=== PATIENT | male | born 1940 | race Caucasian/White ===

== ENCOUNTER 2020-12-29 08:54 | Inpatient (IN) | payer MEDICARE ==
--- NOTE | 2020-12-29 09:22 | ERPHSYRPT ---
- History of Present Illness Time Seen by Provider: 12/29/20 09:00 Historian: patient Exam Limitations: no limitations Patient Subjective Stated Complaint: PT sates "I was woken up by the pain at 5 am and it just keeps hurting. My chest, neck, back, and arm hurt." Triage Nursing Assessment: Pt presented alert and oriented x 3, skin pwd. Pt able to speak in clear full sentences. Pt in no apparent respiratory distress. PT stated he has had both covid shots, pt stated he had horrible reaction to the second shot. Physician History: Patient is a 80-year-old male presents to our emergency department via EMS for evaluation of chest pain. Patient states chest pain started at approximately 5 AM. Chest pain described as an ache that is localized to the substernal area. However that tends to radiate to the neck and back. Patient received 324 mg aspirin as well as 0.4 mg nitro prior to arrival. No associated nausea or vomiting. No diaphoresis. No rash. No fever. Symptoms are mild to moderate in intensity. No specific worsening improving factors. Patient voices no other complaints or concerns at this time. Timing/Duration: today Activities at Onset: sleep Quality: aching Location: substernal Chest Pain Radiation: neck, back Severity of Pain-Max: moderate Severity of Pain-Current: mild Modifying Factors: Improves With: nothing Associated Symptoms: denies symptoms Prior Chest Pain/Cardiac Workup: no prior chest pain Nitro Today/Relief: 0.4 mg x 1 Aspirin Treatment Today: 81 mg x 4 Allergies/Adverse Reactions: No Known Drug Allergies Allergy (Verified 12/29/20 09:06) Home Medications: Metformin HCl [Glucophage] 1,000 mg PO BID 12/29/20 [History] Hx Tetanus, Diphtheria Vaccination/Date Given: No Hx Influenza Vaccination/Date Given: Yes Hx Pneumococcal Vaccination/Date Given: Yes Immunizations Up to Date: Yes Travel Risk - International Travel Have you traveled outside of the country in past 3 weeks: No - Coronavirus Screening Are you exhibiting any of the following symptoms?: No Close contact with a COVID-19 positive Pt in past 14-21 Days: No - Review of Systems Constitutional: No Symptoms, No Fever, No Chills Eyes: No Symptoms Ears, Nose, & Throat: No Symptoms Respiratory: No Symptoms, No Cough, No Dyspnea Cardiac: No Symptoms, No Chest Pain, No Edema, No Syncope Abdominal/Gastrointestinal: No Symptoms, No Abdominal Pain, No Nausea, No Vomiting, No Diarrhea Genitourinary Symptoms: No Symptoms, No Dysuria Musculoskeletal: No Symptoms, No Back Pain, No Neck Pain Skin: No Symptoms, No Rash Neurological: No Symptoms, No Dizziness, No Focal Weakness, No Sensory Changes Psychological: No Symptoms Endocrine: No Symptoms Hematologic/Lymphatic: No Symptoms Immunological/Allergic: No Symptoms All Other Systems: Reviewed and Negative - Past Medical History Pertinent Past Medical History: Yes Neurological History: No Pertinent History ENT History: Cataracts Cardiac History: Hypertension Respiratory History: No Pertinent History Endocrine Medical History: Diabetes Type II Musculoskeletal History: No Pertinent History GI Medical History: No Pertinent History History: No Pertinent History Psycho-Social History: No Pertinent History Male Reproductive Disorders: No Pertinent History - Past Surgical History Past Surgical History: No - Social History Smoking Status: Former smoker Exposure to second hand smoke: Yes Drug Use: none Patient Lives Alone: Yes - Nursing Vital Signs Nursing Vital Signs: Initial Vital Signs Temperature 97.6 F 12/29/20 08:57 Pulse Rate 74 12/29/20 08:57 Respiratory Rate 18 12/29/20 08:57 Blood Pressure 150/84 12/29/20 08:57 O2 Sat by Pulse Oximetry 95 12/29/20 08:57 Pain Scale Pain Intensity 4 - Physical Exam General Appearance: no apparent distress, alert Eye Exam: PERRL/EOMI, eyes nml inspection Ears, Nose, Throat Exam: normal ENT inspection, moist mucous membranes Neck Exam: normal inspection, non-tender, supple, full range of motion Respiratory Exam: normal breath sounds, lungs clear, No respiratory distress Cardiovascular Exam: regular rate/rhythm, normal heart sounds Gastrointestinal/Abdomen Exam: soft, No tenderness, No mass Back Exam: normal inspection, No CVA tenderness, No vertebral tenderness Extremity Exam: normal inspection, normal range of motion Neurologic Exam: alert, oriented x 3, cooperative, normal mood/affect, sensation nml, No motor deficits Skin Exam: normal color, warm, dry SpO2 Interpretation: normal SpO2: 96 O2 Delivery: Room Air - Course Nursing assessment & vital signs reviewed: Yes EKG Interpreted by Me: RATE (74), Sinus Rhythm, NORMAL AXIS, NORMAL INTERVALS - Radiology Exams Chest X-ray Interpretation: Teleradiologist Report (Portable chest rotated demon strating cardiomegaly tortuous descending aorta mild bibasilar infiltrates versus atelectasis and right midlung calcified granuloma. ) Ordered Tests: Active Orders 24 hr Category Date Time Status Bedrest ROUTINE Activity 12/29/20 15:57 Active Bedrest with BRP/BSC ROUTINE Activity 12/29/20 15:57 Active Stores Clerk STAT Care 12/29/20 09:02 Completed Code Status Order ROUTINE Care 12/29/20 15:57 Active EKG-ER Only STAT Care 12/29/20 08:59 Completed IV Care Q6H Care 12/29/20 15:57 Active IV Insertion STAT Care 12/29/20 08:59 Completed Implement Chest Pain Pathway ROUTINE Care 12/29/20 15:[address] in Observation ROUTINE Care 12/29/20 15:57 Active Pulse Oximetry (ED) STAT Care 12/29/20 08:59 Completed [place] ROUTINE Care 12/29/20 15:57 Active Telemetry q6h Care 12/29/20 15:57 Active Weight,Daily 0600 Care 12/29/20 15:57 Active Consistent Carbohydrate Diet 1800 Calorie Diet 12/29/20 Dinner Completed CHEST 1 VIEW (PORTABLE) Stat Exams 12/29/20 09:02 Completed CBC W DIFF Stat Lab 12/29/20 09:00 Completed CMP Stat Lab 12/29/20 09:00 Completed LIPID PROFILE AM.LAB Lab 12/30/20 04:00 Ordered MAGNESIUM Stat Lab 12/29/20 09:00 Completed NT PRO BNP Stat Lab 12/29/20 09:00 Completed TROPONIN Q3H Lab 12/29/20 09:00 Completed TROPONIN Q3H Lab 12/29/20 11:34 Completed TROPONIN Q3H Lab 12/29/20 14:40 Completed TROPONIN Q3H Lab 12/29/20 18:20 Completed TROPONIN Q3H Lab 12/29/20 21:15 Completed UA W/RFX UR CULTURE Stat Lab 12/29/20 18:20 Completed EKG Q8HX2,QAMX3,PRN RT 12/31/20 05:00 Active Transfer Order Routine Transfer 12/29/20 Completed Medication Summary Generic Name Dose Route Start Last Admin Trade Name Freq PRN Reason Stop Dose Admin Acetaminophen 500 mg 12/29/20 16:01 Tylenol Extra Strength 500 Mg PO 01/28/21 16:00 Q4H PRN PRN Hydrocodone Bitart/Acetaminophen 1 tab 12/29/20 16:02 [place] 5/325 Mg PO 01/03/21 16:01 Q4H PRN PRN PAIN Al Hydrox/Mg Hydrox/Simethicone 30 ml 12/29/20 15:57 Maalox Es 30 Ml Unit Dose PO 01/28/21 15:56 Q4H PRN PRN INDIGESTION Dexamethasone Sodium Phosphate 8 mg 12/29/20 17:00 12/29/20 21:33 Decadron 10mg Inj. IV 01/28/21 16:59 Not Given DAILY MILY Enoxaparin Sodium 60 mg 12/29/20 17:00 12/29/20 17:16 Enoxaparin Sodium SQ 01/28/21 16:59 60 mg DAILY MILY Administration Remdesivir 100 mg/ Sodium 100 mls @ 100 mls/hr 12/30/20 17:00 Chloride IV 01/29/21 16:59 Q24H MILY Insulin Human Lispro 0 unit 12/29/20 17:33 Humalog SQ 01/28/21 17:32 UD PRN HYPERGLYCEMIA Lorazepam 1 mg 12/29/20 16:01 Ativan 1 Mg PO 01/28/21 16:00 Q4H PRN PRN ANXIETY OR SLEEP Magnesium Hydroxide 30 - 60 ml 12/29/20 15:57 Milk Of Magnesia 30 Ml PO 01/28/21 15:56 QDP PRN CONSTIPATION Metformin HCl 1,000 mg 12/29/20 17:00 12/29/20 17:10 Glucophage 500 Mg PO 01/28/21 16:59 1,000 mg BIDWM MILY Administration Morphine Sulfate 4 mg 12/29/20 16:02 12/29/20 17:28 Morphine Sulfate 4 Mg Inj IV 01/03/21 16:01 4 mg Q3H PRN PRN Administration CHEST PAIN Ondansetron HCl 4 mg 12/29/20 15:57 Zofran 4 Mg/2 Ml Vial IV 01/28/21 15:56 Q4H PRN PRN NAUSEA/VOMITING Senna/Docusate Sodium 2 udtab 12/29/20 15:57 Senokot-S Tablet PO 01/28/21 15:56 BID PRN PRN CONSTIPATION Sodium Chloride 10 ml 12/29/20 22:00 12/29/20 21:25 Sodium Chloride 0.9% 10 Ml Flush Syringe IV 01/28/21 21:59 10 ml Q8HT MILY Administration Sodium Chloride 10 ml 12/29/20 16:00 Sodium Chloride 0.9% 10 Ml Flush Syringe IV 01/28/21 15:59 PRN PRN Discontinued Medications Generic Name Dose Route Start Last Admin Trade Name Ryan PRN Reason Stop Dose Admin Acetaminophen 650 mg 12/29/20 15:57 Tylenol 325 Mg PO 01/28/21 15:56 Q4H PRN PRN PAIN AND/OR FEVER Remdesivir 200 mg/ Sodium 250 mls @ 125 mls/hr 12/29/20 17:00 12/29/20 19:55 Chloride IV 12/29/20 18:59 125 mls/hr 1700 MILY Administration Nitroglycerin 1 gm 12/29/20 12:02 12/29/20 12:08 Nitro-Bid 2% Ud Packets TOP 12/29/20 12:03 1 gm STAT ONE Administration Nitroglycerin Confirm 12/29/20 12:05 Nitro-Bid 2% Ud Packets Administered 12/29/20 12:06 Dose 1 gm .ROUTE .ST-MED ONE Lab/Rad Data: Laboratory Result Diagrams 12/29/20 09:00 12/29/20 09:00 Laboratory Results 12/29/20 12/29/20 12/29/20 Range/Units 14:40 12:19 11:34 WBC (4.0-10.5) K/mm3 RBC (4.1-5.6) M/mm3 Hgb (12.5-18.0) gm/dl Hct (42-50) % MCV (78-100) fl MCH (26-32) pg MCHC (32-36) g/dl RDW (11.5-14.0) % Plt Count (150-450) K/mm3 MPV (7.5-11.0) fl Gran % (36.0-66.0) % Eos # (Auto) (0-0.5) Absolute Lymphs (auto) (1.0-4.6) Absolute Monos (auto) (0.0-1.3) Lymphocytes % (24.0-44.0) % Monocytes % (0.0-12.0) % Eosinophils % (0.00-5.0) % Basophils % (0.0-0.4) % Absolute Granulocytes (1.4-6.9) Basophils # (0-0.4) Sodium (137-145) mmol/L Potassium (3.5-5.1) mmol/L Chloride (98-107) mmol/L Carbon Dioxide (22-30) mmol/L Anion Gap (5-15) MEQ/L BUN (9-20) mg/dL Creatinine (0.66-1.25) mg/dL Estimated GFR ML/MIN Glucose (74-106) mg/dL Calcium (8.4-10.2) mg/dL Magnesium (1.6-2.3) mg/dL Total Bilirubin (0.2-1.3) mg/dL AST (17-59) U/L ALT (0-50) U/L Alkaline Phosphatase (38-126) U/L Troponin I < 0.012 < 0.012 (0.000-0.034) ng/mL NT-Pro-B Natriuret Pep (0-1800) pg/mL Serum Total Protein (6.3-8.2) g/dL Albumin (3.5-5.0) g/dL Influenza Type A Ag NEGATIVE (NEGATIVE) Influenza Type B Ag NEGATIVE (NEGATIVE) RSV (PCR) NEGATIVE (Negative) SARS-CoV-2 (PCR) POSITIVE A (NEGATIVE) 12/29/20 12/29/20 12/29/20 Range/Units 09:00 09:00 09:00 WBC 7.0 (4.0-10.5) K/mm3 RBC 4.12 (4.1-5.6) M/mm3 Hgb 11.2 L (12.5-18.0) gm/dl Hct 34.9 L (42-50) % MCV 84.7 (78-100) fl MCH 27.2 (26-32) pg MCHC 32.1 (32-36) g/dl RDW 14.3 H (11.5-14.0) % Plt Count 198 (150-450) K/mm3 MPV 8.9 (7.5-11.0) fl Gran % 85.3 H (36.0-66.0) % Eos # (Auto) 0.06 (0-0.5) Absolute Lymphs (auto) 0.54 L (1.0-4.6) Absolute Monos (auto) 0.42 (0.0-1.3) Lymphocytes % 7.7 L (24.0-44.0) % Monocytes % 6.0 (0.0-12.0) % Eosinophils % 0.9 (0.00-5.0) % Basophils % 0.1 (0.0-0.4) % Absolute Granulocytes 5.96 (1.4-6.9) Basophils # 0.01 (0-0.4) Sodium 135 L (137-145) mmol/L Potassium 3.5 (3.5-5.1) mmol/L Chloride 99 (98-107) mmol/L Carbon Dioxide 30 (22-30) mmol/L Anion Gap 9.5 (5-15) MEQ/L BUN 16 (9-20) mg/dL Creatinine 1.34 H (0.66-1.25) mg/dL Estimated GFR 54.2 ML/MIN Glucose 191 H (74-106) mg/dL Calcium 8.4 (8.4-10.2) mg/dL Magnesium 2.0 (1.6-2.3) mg/dL Total Bilirubin 0.40 (0.2-1.3) mg/dL AST 19 (17-59) U/L ALT 13 (0-50) U/L Alkaline Phosphatase 82 (38-126) U/L Troponin I < 0.012 (0.000-0.034) ng/mL NT-Pro-B Natriuret Pep 541 (0-1800) pg/mL Serum Total Protein 6.9 (6.3-8.2) g/dL Albumin 3.9 (3.5-5.0) g/dL Influenza Type A Ag (NEGATIVE) Influenza Type B Ag (NEGATIVE) RSV (PCR) (Negative) SARS-CoV-2 (PCR) (NEGATIVE) - Progress Progress: improved Air Movement: good Progress Note: Patient reassessed. He feels well. No active chest pain. Vital stable. Troponin negative x2. We attempted transferring patient to the [facility] however no b eds available. PA approved admission to our facility. Plan of care discussed with patient. He agreed to admission to [facility] for further evaluation and treatment. Patient is covid positive. Case discussed with Edyta who accepts admission to observation. Patient voices no other complaints or concerns at this time. 12/29/20 10:16 12/30/20 00:02 12/30/20 00:06 Blood Culture(s) Obtained: No Antibiotics given: No Discussed with : Other Will see patient in: hospital (observation) Counseled pt/family regarding: lab results, diagnosis, rad results - Departure Departure Disposition: Observation Clinical Impression: ACS (acute coronary syndrome), Chest pain, Proteinuria, Calcified granuloma of lung, Renal insufficiency, SARS-CoV-2 positive Condition: Stable Critical Care Time: No
[2020-12-29 09:26] LABS: Absolute Neutrophil Ct (ANC) 5.96 (1.4-6.9); BASOPHIL % 0.1 % (0.0-0.4); Basophil (Absolute #) 0.01 (0-0.4); Eosinophil % 0.9 % (0.00-5.0); Eosinophil (Absolute #) 0.06 (0-0.5); Hematocrit 34.9 % (42-50); Hemoglobin 11.2 gm/dl (12.5-18.0); Lymphocyte (Absolute #) 0.54 (1.0-4.6); Lymphocytes % 7.7 % (24.0-44.0); Mean Cell Volume 84.7 fl (78-100); Mean Corpuscular Hemoglobin 27.2 pg (26-32); Mean Corpuscular Hgb Concent. 32.1 g/dl (32-36); Mean Platelet Volume 8.9 fl (7.5-11.0); Monocyte (Absolute #) 0.42 (0.0-1.3); Neutrophil % 85.3 % (36.0-66.0); Platelet Count 198 K/mm3 (150-450); Red Blood Count 4.12 M/mm3 (4.1-5.6); Red Cell Distribution Width 14.3 % (11.5-14.0)
--- NOTE | 2020-12-29 09:41 | XRAY ---
Indication: Chest pain. Comparison: None Portable chest rotated demonstrating cardiomegaly, tortuous descending aorta, mild bibasilar infiltrates versus atelectasis, and right mid lung calcified granuloma. Bony thorax intact with mild degenerative changes.
[2020-12-29 09:46] LABS: ALBUMIN 3.9 g/dL (3.5-5.0); ANION GAP 9.5 MEQ/L (5-15); BILIRUBIN,TOTAL 0.4 mg/dL (0.2-1.3); Calcium 8.4 mg/dL (8.4-10.2); Creatinine 1 1.34 mg/dL (0.66-1.25); EST GLOMERULAR FILTRATION RATE 54.2 ML/MIN; Potassium 3.5 mmol/L (3.5-5.1); Total Protein 6.9 g/dL (6.3-8.2)
[2020-12-29] MEDS ORDERED: NITRO-BID 2% UD PACKETS TOP ONE (12:02)
[2020-12-29] MEDS ORDERED: NITRO-BID 2% UD PACKETS ONE (12:05)
[2020-12-29 12:58] LABS: INFLUENZA A NEGATIVE (NEGATIVE); INFLUENZA B NEGATIVE (NEGATIVE); RESPIRATORY SYNCTIAL VIRUS NEGATIVE (Negative)
[2020-12-29] MEDS ORDERED: Zofran 4 MG/2 ML VIAL IV PRN (15:57)
[2020-12-29] MEDS ORDERED: TYLENOL 325 MG PO PRN (15:57)
[2020-12-29] MEDS ORDERED: MAALOX ES 30 ML UNIT DOSE PO PRN (15:57)
[2020-12-29] MEDS ORDERED: MILK OF MAGNESIA 30 ML PO PRN (15:57)
[2020-12-29] MEDS ORDERED: Senokot-S Tablet PO PRN (15:57)
[2020-12-29] MEDS ORDERED: Sodium Chloride 0.9% 10 ML FLUSH Syringe IV PRN (16:00)
[2020-12-29] MEDS ORDERED: Ativan 1 MG PO PRN (16:01)
[2020-12-29] MEDS ORDERED: TYLENOL EXTRA STRENGTH 500 MG PO PRN (16:01)
[2020-12-29] MEDS ORDERED: NORCO 5/325 MG PO PRN (16:02)
[2020-12-29] MEDS ORDERED: ENOXAPARIN SODIUM SQ SCH (17:00)
[2020-12-29] MEDS: Glucophage 500 MG PO SCH (17:10)
[2020-12-29] MEDS: DECADRON 10MG INJ. IV SCH ×2 (17:11→21:33)
[2020-12-29] MEDS: REMDESIVIR 200 MG in Sodium Chloride 0.9% 250 ML 250 ML IV SCH ×2 (17:11→19:55)
[2020-12-29] MEDS: MORPHINE SULFATE 4 MG INJ IV PRN (17:28)
[2020-12-29] MEDS ORDERED: HUMALOG SQ PRN (17:33)
[2020-12-29 18:33] LABS: Appearance SLIGHTLY CLOUDY (CLEAR); Bilirubin NEGATIVE (NEGATIVE); Blood NEGATIVE Ery/ul (0-5); Glucose NEGATIVE (NEGATIVE); Ketones SMALL (NEGATIVE); Leukocyte Esterase NEGATIVE (NEGATIVE); Mucus MODERATE /HPF (NEGATIVE); Nitrite NEGATIVE (NEGATIVE); Protein,Urine Dip 100 (Negative); Specific Gravity 1.026 (1.005-1.025); Urobilinogen 4 mg/dL (0-1); WBC 0-2 /HPF (0-5)
[2020-12-29] MEDS: Sodium Chloride 0.9% 10 ML FLUSH Syringe IV SCH (21:25)
[2020-12-30] MEDS: MORPHINE SULFATE 4 MG INJ IV PRN (02:42)
[2020-12-30] MEDS: Sodium Chloride 0.9% 10 ML FLUSH Syringe IV SCH (04:51)
[2020-12-30 05:41] LABS: ALBUMIN 3.7 g/dL (3.5-5.0); ANION GAP 10.7 MEQ/L (5-15); BILIRUBIN,TOTAL 0.3 mg/dL (0.2-1.3); Calcium 8.3 mg/dL (8.4-10.2); Creatinine 1 1.44 mg/dL (0.66-1.25); EST GLOMERULAR FILTRATION RATE 49.9 ML/MIN; Potassium 3.9 mmol/L (3.5-5.1); Total Protein 6.5 g/dL (6.3-8.2)
[2020-12-30 05:51] LABS: Risk Ratio 5.1
[2020-12-30 05:58] LABS: INR 1.42 (0.8-3.0); PROTIME 16.1 SECONDS (8.83-12.87)
[2020-12-30] MEDS ORDERED: LOPRESSOR 5 MG/5 ML INJECTION IV ONE (06:00)
[2020-12-30] MEDS: Glucophage 500 MG PO SCH (08:06)
[2020-12-30] MEDS ORDERED: Cardizem IV 50 MG/10 ML IV ONE (08:14)
[2020-12-30] MEDS ORDERED: CARDIZEM DRIP 100 MG/100 ML D5W 100 ML IV PRN (08:14)
[2020-12-30] MEDS ORDERED: Sodium Chloride 0.9% 1000 ML 1,000 ML IV SCH (08:15)
[2020-12-30] MEDS: DECADRON 10MG INJ. IV SCH (09:52)
[2020-12-30] MEDS ORDERED: XARELTO 10 MG TABLET PO SCH (10:00)
--- NOTE | 2020-12-30 10:41 | HP ---
CHIEF COMPLAINT: Chest pain, neck pain, arm pain, weakness. HISTORY OF PRESENT ILLNESS: The patient is a previously healthy 80 year-old white male who woke up with chest aching, aching in his neck, left arm and back. He has been weak and at this point got on floor and could not get up. He has had his COVID shots several weeks ago for the second one and after them he could not get up after he fell on the floor once. He describes no GI symptoms, no nausea or vomiting. He is able to eat fine. Normally he is ambulatory. He moved down to [place], [place] to live with and take care of his sister's . He has been out to the local [employer] and grocery store and he has not been wearing a mask since he feels protected with the vaccines and he admits now perhaps he was wrong. We have a standard protocol now of testing anybody who is going to be admitted for COVID and he came back positive. His chest x-ray did show some fluffiness maybe in the left lower quadrant. He was not coughing. His oxygen levels have been normal on room air although he has been somewhat short of breath at times he states. The chest pain went down to 4 with some morphine. Nitro did not effect it. His troponins are negative. His EKG showed some nonspecific inferior changes which could be inferior-lateral ischemia. He used to smoke 30 pack years but has not in 20 years. Because of the positive COVID test he was admitted to the COVID unit. Unfortunately, he was admitted [facility] because of the insurance situation and they do not take observation patient's which I understand. However this morning it looks like he is going to be in for a longer stay. He went into atrial fibrillation at maybe 0430 hours although he was anticoagulated with Lovenox and also received his first of Remdesivir and Decadron. We started him on Xarelto 30 mg, Cardizem drip when the rate did not come down with some beta blockers. Now he is pretty comfortable with the rate about 110 at 1000 hours. He said he feels not well but not real bad. He denies chest pain. He is not coughing, not shortness of breath still. He is alert and orientated, sleeping well. PAST MEDICAL HISTORY: The patient has had diabetes for he does not know how many years. He takes Metformin. MEDICATIONS: As far as we can find out his Metformin 1,000 b.i.d. ALLERGIES: NKDA. REVIEW OF SYSTEMS: HEENT: No fever or chills. No change in taste. CHEST: Just feeling some shortness of breath occasionally. Chest feels achy. EXTREMITIES: Arm feels achy. NECK: Neck is worse and is worse with moving his neck. NEUROLOGICAL: No headache. No focal weakness. No history of stroke. PHYSICOLOGICAL: No history of depression or mental illness. ALLERGY/LYMPHATICS: No problems. 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 PHYSICAL EXAMINATION: VITAL SIGNS: Temperature 97F, pulse 74, respiratory rate 18, blood pressure 150/84. O2 saturation on room air 95% on admission. GENERAL APPEARANCE: He was in no distress, alert, orientated, intelligent. HEENT: Pupils equal and reactive to light. NECK: Supple without adenopathy. CHEST: Clear. CVS: Irregular-irregular. No murmurs or gallops. He was in sinus rhythm initially then at 0430 hours on 12/30/2020 when he went into atrial fibrillation. He has no history of atrial fibrillation. ABDOMEN: Soft. No masses or organomegaly. EXTREMITIES: Soft pulses. No edema. LAB DATA AND TESTS: Electrolytes are normal. Creatinine was 1.34 mildly elevated. Estimated GFR was 54. White count 71.2. Glucose 190, magnesium 2.0. Liver enzymes normal. BNP was well within normal at 500. His D-dimer came back elevated at like 700 and at that time I did order CT scan with contrast however they decided to wait and send him up to the ID. He had his Metformin this morning and his creatinine is a little elevated but I do not think it will be a problem doing that if they decide it is needed. IMPRESSION: The patient had positive COVID test with weakness, achiness all over basically. He has gone into atrial fibrillation several hours ago. He was anticoagulated with Xarelto and he has been given doses of Remdesivir 200, Decadron 8 mg, sliding dose of insulin. I have tried to explain the situation where he does sound like he has COVID probably. Chances are about 1 to 2% positive especially with two vaccines would get it several weeks later. However he has been out in the public without a mask. I also tried to explain his atrial fibrillation situation and need for rate control and anticoagulation. I do note that his cholesterol risk ratio is good at 5.1. PLAN: The patient will be transferred to the [facility] in [place] for further treatment and evaluation of his achiness, atrial fibrillation and positive COVID test.
[2020-12-30] MEDS ORDERED: Cardizem CD 120 MG PO SCH (12:00)
[2020-12-30 12:44] VITALS: PULSE 150; O2SAT 94
[2020-12-30 12:51] VITALS: BP 143/75
[2020-12-30] MEDS ORDERED: REMDESIVIR 100 MG in Sodium Chloride 0.9% 100 ML IVPB 100 ML IV SCH (17:00)
== END 2020-12-30 13:07 | disposition critical access hospital (66) | DRG 308 ==
LOC: ED 08:54 → MED SURG 15:15 → OBSVTOIN 12-30 08:15
PROVIDERS: ADMIT Family Medicine; ATTEND Family Medicine
DX: I48.91 Unspecified atrial fibrillation (principal); U07.1 COVID-19; R07.9 Chest pain, unspecified; M54.2 Cervicalgia; M79.602 Pain in left arm; E11.9 Type 2 diabetes mellitus without complications; Z79.01 Long term (current) use of anticoagulants
CPT/HCPCS: 0241U; 36000; 36415; 71045; 80053; 80061; 81001; 82947; 83036; 83721; 83735; 83880; 84484; 85025; 85379; 85610; 93005; 93041; 93268; 94760; 94762; 99285; G0378; J1100; J1650; J1817; J2270; A9270-GY

== ENCOUNTER 2023-10-15 16:15 | Emergency (ER) | payer MEDICARE, OTHER ==
[2023-10-15] MEDS ORDERED: ATROPINE SULFATE 1MG SYR ABBOJECT ONE ×2 (16:31→16:34)
[2023-10-15 16:37] VITALS: TEMP 97
[2023-10-15] MEDS ORDERED: ATROPINE SULFATE 1MG SYR ABBOJECT IV ONE ×2 (16:39→16:40)
[2023-10-15 16:42] LABS: Absolute Neutrophil Ct (ANC) 6.91 x10^3/uL (1.4-6.9); BASOPHIL % 0.2 % (0.0-0.4); Basophil (Absolute #) 0.02 x10^3/uL (0-0.4); Eosinophil (Absolute #) 0.08 x10^3/uL (0-0.5); Hematocrit 27.2 % (42-50); Hemoglobin 8.6 g/dL (12.5-18.0); IMMATURE GRAN # 0.05 x10^3u/L (0.00-0.03); IMMATURE GRAN % 0.6 % (0.00-0.4); Lymphocyte (Absolute #) 0.69 x10^3/uL (1.0-4.6); Lymphocytes % 8.3 % (24.0-44.0); Mean Cell Volume 83.7 fL (78-100); Mean Corpuscular Hemoglobin 26.5 pg (26-32); Mean Corpuscular Hgb Concent. 31.6 g/dL (32-36); Mean Platelet Volume 9.6 fL (7.5-11.0); Monocyte (Absolute #) 0.58 x10^3/uL (0.0-1.3); Neutrophil % 82.9 % (36.0-66.0); Platelet Count 193 x10^3/uL (150-450); Red Blood Count 3.25 x10^6/uL (4.1-5.6); Red Cell Distribution Width 16.7 % (11.5-14.0); White Blood Count 8.3 x10^3/uL (4.0-10.5)
[2023-10-15 16:54] VITALS: BP 107/59
[2023-10-15 16:54] LABS: INR 1.23 (0.8-3.0); PROTIME 13.2 SECONDS (9.4-12.5); PTT 39.9 SECONDS (25.1-36.5)
[2023-10-15 17:01] LABS: ALBUMIN 4.2 g/dL (3.5-5.0); ANION GAP 18.3 MEQ/L (5-15); BILIRUBIN,TOTAL 0.3 mg/dL (0.2-1.3); Calcium 8.8 mg/dL (8.4-10.2); Creatinine 1 4.23 mg/dL (0.66-1.25); EST GLOMERULAR FILTRATION RATE 13.1 ML/MIN; MAGNESIUM 2.8 mg/dL (1.6-2.3); Total Protein 7.8 g/dL (6.3-8.2)
[2023-10-15 17:04] LABS: Potassium 6.4 mmol/L (3.5-5.1)
[2023-10-15] MEDS ORDERED: Calcium Gluconate 10% 1000 MG IV ONE ×2 (17:08→17:10)
[2023-10-15] MEDS ORDERED: D50W 50 ml Abboject IV ONE ×2 (17:08→17:10)
[2023-10-15] MEDS ORDERED: HUMULIN R ONE (17:08)
[2023-10-15] MEDS ORDERED: SODIUM BICARBONATE 50 MEQ/50 ML ABBOJECT IV ONE ×3 (17:09→17:14)
[2023-10-15] MEDS ORDERED: PROVENTIL 2.5 MG/3 ML NEB IH ONE ×2 (17:10→17:11)
[2023-10-15 17:16] VITALS: PULSE 42; RESP 20; O2SAT 95
[2023-10-15] MEDS ORDERED: Kayexylate 15 GM/60 ML PO ONE (17:16)
[2023-10-15] MEDS ORDERED: HUMULIN R IV ONE (17:16)
--- NOTE | 2023-10-15 17:19 | XRAY ---
Indication: Bradycardia. Comparison: December 29, 2020 Portable chest again demonstrates cardiomegaly with small new right effusion. Cardiac decompensation/CHF offered for clinical consideration. Bony thorax intact again with osteopenia and degenerative changes.
[2023-10-15] MEDS ORDERED: Kayexylate 15 GM/60 ML ONE ×2 (17:21→17:24)
--- NOTE | 2023-10-15 19:24 | ERPHSYRPT ---
- History of Present Illness Source: patient, EMS Exam Limitations: no limitations Patient Subjective Stated Complaint: Dizziness Triage Nursing Assessment: Patient brought into ED per EMS and transfered to bed with assist of 2. Patient's skin pale, warm and dry. warm and dry. Patient complains of dizziness, weakness and nausea for the past two days. EMS states vital were WNL during BLS transport. As this nurse is assessing patient heart rate noted to be 37. Patient denies pain or discomfort. Physician History: Patient is an 83-year-old gentleman with history of hypertension and diabetes mellitus who presents per EMS after being dizzy and lightheaded for 1 day. Although EMS says that his vital signs were stable, his heart rate was in the mid 30s when he got to the ER, and it was determined that patient had symptomatic bradycardia. IV access started immediately, and an EKG was also obtained and needed. Patient had a good blood pressure. Patient given IV Timing/Duration: today Activities at Onset: rest Quality: other (No chest pain) Chest Pain Radiation: no radiation Severity of Pain-Max: none Severity of Pain-Current: none Modifying Factors: Improves With: other (Worse when getting up) Nitro Today/Relief: no nitro taken today Aspirin Treatment Today: no aspirin today Associated Symptoms: other (Dizziness/Lightheadedness) Prior Chest Pain/Cardiac Workup: no prior chest pain Allergies/Adverse Reactions: No Known Drug Allergies Allergy (Verified 10/15/23 16:22) Home Medications: Metformin HCl [Glucophage] 500 mg PO BID 12/29/20 [History] Alogliptin Benzoate [Alogliptin] 12.5 mg PO DAILY 12/30/20 [History] Lisinopril 20 mg [Zestril 20 MG] 20 mg PO DAILY 12/30/20 [History] Meclizine HCl 12.5 mg PO Q6HPRN PRN 12/30/20 [History] Terazosin HCl 5 mg PO HS 12/30/20 [History] Amlodipine Besylate 5 mg [Norvasc 5 mg] 5 mg PO DAILY 10/15/23 [History] Metoprolol Succinate 100 mg [Toprol Xl 100 MG] 100 mg PO DAILY 10/15/23 [History] Rivaroxaban 10 mg Tablet [Xarelto 10 mg Tablet] 15 mg PO DAILY 10/15/23 [History] Rosuvastatin Calcium 10 mg PO DAILY 10/15/23 [History] Hx Tetanus, Diphtheria Vaccination/Date Given: No Hx Influenza Vaccination/Date Given: No Hx Pneumococcal Vaccination/Date Given: Yes Immunizations Up to Date: Yes Travel Risk - International Travel Have you traveled outside of the country in past 3 weeks: No - Coronavirus Screening Are you exhibiting any of the following symptoms?: No - Vaccine Status Have you recieved a Covid-19 vaccination: No - Review of Systems Constitutional: No Symptoms, Malaise, Weakness Eyes: No Symptoms Ears, Nose, & Throat: No Symptoms Respiratory: No Symptoms Cardiac: Syncope (Near) Abdominal/Gastrointestinal: No Symptoms, Nausea Genitourinary Symptoms: No Symptoms Musculoskeletal: No Symptoms Skin: No Symptoms Neurological: No Symptoms, Dizziness Psychological: No Symptoms Endocrine: No Symptoms Hematologic/Lymphatic: No Symptoms Immunological/Allergic: No Symptoms - Past Medical History Pertinent Past Medical History: Yes Neurological History: No Pertinent History ENT History: Cataracts Cardiac History: Hypertension Respiratory History: No Pertinent History Endocrine Medical History: Diabetes Type II Musculoskeletal History: No Pertinent History GI Medical History: No Pertinent History History: No Pertinent History Psycho-Social History: No Pertinent History Male Reproductive Disorders: No Pertinent History - Past Surgical History Past Surgical History: No - Social History Smoking Status: Former smoker Exposure to second hand smoke: Yes Drug Use: none Patient Lives Alone: No - Nursing Vital Signs Nursing Vital Signs: Initial Vital Signs Temperature 97.0 F 10/15/23 16:24 Pulse Rate 37 L 10/15/23 16:24 Respiratory Rate 20 10/15/23 16:24 O2 Sat by Pulse Oximetry 95 10/15/23 16:24 Pain Scale Pain Intensity 0 - Physical Exam General Appearance: moderate distress Eye Exam: PERRL/EOMI, eyes nml inspection Ears, Nose, Throat Exam: normal ENT inspection, TMs normal, pharynx normal Neck Exam: normal inspection, non-tender, No Brudzinski, No Kernig's, No carotid bruit Respiratory Exam: crackles/rales (Rales B bases) Cardiovascular Exam: bradycardia (severe bradycardia) Gastrointestinal/Abdomen Exam: soft, normal bowel sounds, No tenderness Back Exam: normal inspection, normal range of motion Extremity Exam: normal inspection, normal range of motion Neurologic Exam: No motor deficits, No sensory deficit Skin Exam: normal color, warm, dry Lymphatic Exam: No adenopathy SpO2 Interpretation: normal SpO2: 95 O2 Delivery: Room Air - Course Nursing assessment & vital signs reviewed: Yes - Radiology Exams Chest X-ray Interpretation: Reviewed by me (Cardiomegaly/R pleural effusion) Ordered Tests: Medication Summary Discontinued Medications Generic Name Dose Route Start Last Admin Trade Name Freq PRN Reason Stop Dose Admin Albuterol Sulfate 2.5 mg 10/15/23 17:11 10/15/23 17:12 Albuterol Sulfate 2.5 Mg/3 Ml Neb IH 10/15/23 17:12 2.5 mg STAT ONE Administration Albuterol Sulfate Confirm 10/15/23 17:10 Albuterol Sulfate 2.5 Mg/3 Ml Neb Administered 10/15/23 17:11 Dose 2.5 mg IH .STK-MED ONE Atropine Sulfate Confirm 10/15/23 16:31 Atropine Sulfate 1 Mg/10 Ml Abboject Administered 10/15/23 16:32 Dose 1 mg .ROUTE .STK-MED ONE Atropine Sulfate Confirm 10/15/23 16:34 Atropine Sulfate 1 Mg/10 Ml Abboject Administered 10/15/23 16:35 Dose 1 mg .ROUTE .STK-MED ONE Atropine Sulfate 1 mg 10/15/23 16:39 10/15/23 16:45 Atropine Sulfate 1 Mg/10 Ml Abboject IV 10/15/23 16:40 1 mg STAT ONE Administration Atropine Sulfate 1 mg 10/15/23 16:40 10/15/23 16:32 Atropine Sulfate 1 Mg/10 Ml Abboject IV 10/15/23 16:41 1 mg STAT ONE Administration Calcium Gluconate Confirm 10/15/23 17:08 Calcium Gluconate 1000 Mg/10 Ml Vial Administered 10/15/23 17:09 Dose 1,000 mg IV .STK-MED ONE Calcium Gluconate 1,000 mg 10/15/23 17:10 10/15/23 17:19 Calcium Gluconate 1000 Mg/10 Ml Vial IV 10/15/23 17:11 1,000 mg STAT ONE Administration Dextrose Confirm 10/15/23 17:08 Dextrose 50%-Water 50 Ml Abboject Administered 10/15/23 17:09 Dose 50 ml IV .STK-MED ONE Dextrose 25 ml 10/15/23 17:10 10/15/23 17:19 Dextrose 50%-Water 50 Ml Abboject IV 10/15/23 17:11 50 ml STAT ONE Administration Insulin Human Regular Confirm 10/15/23 17:08 Insulin Regular, Human 1 Unit Administered 10/15/23 17:09 Dose 10 unit .ROUTE .STK-MED ONE Insulin Human Regular 10 unit 10/15/23 17:16 10/15/23 17:18 Insulin Regular, Human 1 Unit IV 10/15/23 17:17 10 unit STAT ONE Administration Sodium Bicarbonate Confirm 10/15/23 17:09 Sodium Bicarbonate 1 Meq/Ml 50ml Syringe Administered 10/15/23 17:10 Dose 100 meq IV .STK-MED ONE Sodium Bicarbonate 50 meq 10/15/23 17:10 10/15/23 17:19 Sodium Bicarbonate 1 Meq/Ml 50ml Syringe IV 10/15/23 17:11 50 meq STAT ONE Administration Sodium Bicarbonate 50 meq 10/15/23 17:14 10/15/23 17:19 Sodium Bicarbonate 1 Meq/Ml 50ml Syringe IV 10/15/23 17:15 50 meq STAT ONE Administration Sodium Polystyrene Sulfonate 30 g 10/15/23 17:16 10/15/23 17:22 Sodium Polystyrene Sulfonate 15 G/60 Ml Bottle PO 10/15/23 17:17 30 g STAT ONE Administration Sodium Polystyrene Sulfonate Confirm 10/15/23 17:21 Sodium Polystyrene Sulfonate 15 G/60 Ml Bottle Administered 10/15/23 17:22 Dose 15 g .ROUTE .STK-MED ONE Sodium Polystyrene Sulfonate Confirm 10/15/23 17:24 Sodium Polystyrene Sulfonate 15 G/60 Ml Bottle Administered 10/15/23 17:25 Dose 15 g .ROUTE .STK-MED ONE Lab/Rad Data: Laboratory Result Diagrams 10/15/23 16:25 10/15/23 16:25 Laboratory Results 10/15/23 10/15/23 10/15/23 Range/Units 16:25 16:25 16:25 WBC (4.0-10.5) x10^3/uL RBC (4.1-5.6) x10^6/uL Hgb (12.5-18.0) g/dL Hct (42-50) % MCV (78-100) fL MCH (26-32) pg MCHC (32-36) g/dL RDW (11.5-14.0) % Plt Count (150-450) x10^3/uL MPV (7.5-11.0) fL Gran % (36.0-66.0) % Immature Gran % (Auto) (0.00-0.4) % Nucleat RBC Rel Count (0.00-0.1) % Eos # (Auto) (0-0.5) x10^3/uL Immature Gran # (Auto) (0.00-0.03) x10^3u/L Absolute Lymphs (auto) (1.0-4.6) x10^3/uL Absolute Monos (auto) (0.0-1.3) x10^3/uL Absolute Nucleated RBC (0.00-0.01) x10^3u/L Lymphocytes % (24.0-44.0) % Monocytes % (0.0-12.0) % Eosinophils % (0.00-5.0) % Basophils % (0.0-0.4) % Absolute Granulocytes (1.4-6.9) x10^3/uL Basophils # (0-0.4) x10^3/uL PT 13.2 H (9.4-12.5) SECONDS INR 1.23 (0.8-3.0) APTT 39.9 H (25.1-36.5) SECONDS Sodium 135 L (137-145) mmol/L Potassium 6.4 H* (3.5-5.1) mmol/L Chloride 109 H (98-107) mmol/L Carbon Dioxide 14 L* (22-30) mmol/L Anion Gap 18.3 H (5-15) MEQ/L BUN 64 H (9-20) mg/dL Creatinine 4.23 H (0.66-1.25) mg/dL Estimated GFR 13.1 ML/MIN Glucose 255 H (74-106) mg/dL Calcium 8.8 (8.4-10.2) mg/dL Magnesium 2.8 H (1.6-2.3) mg/dL Total Bilirubin 0.30 (0.2-1.3) mg/dL AST 24 (17-59) U/L ALT 20 (0-50) U/L Alkaline Phosphatase 127 H (38-126) U/L Troponin I < 0.012 (0.000-0.034) ng/mL NT-Pro-B Natriuret Pep 5020 (<300) pg/mL Serum Total Protein 7.8 (6.3-8.2) g/dL Albumin 4.2 (3.5-5.0) g/dL 10/15/23 Range/Units 16:25 WBC 8.3 (4.0-10.5) x10^3/uL RBC 3.25 L (4.1-5.6) x10^6/uL Hgb 8.6 L (12.5-18.0) g/dL Hct 27.2 L (42-50) % MCV 83.7 (78-100) fL MCH 26.5 (26-32) pg MCHC 31.6 L (32-36) g/dL RDW 16.7 H (11.5-14.0) % Plt Count 193 (150-450) x10^3/uL MPV 9.6 (7.5-11.0) fL Gran % 82.9 H (36.0-66.0) % Immature Gran % (Auto) 0.6 H (0.00-0.4) % Nucleat RBC Rel Count 0.0 (0.00-0.1) % Eos # (Auto) 0.08 (0-0.5) x10^3/uL Immature Gran # (Auto) 0.05 H (0.00-0.03) x10^3u/L Absolute Lymphs (auto) 0.69 L (1.0-4.6) x10^3/uL Absolute Monos (auto) 0.58 (0.0-1.3) x10^3/uL Absolute Nucleated RBC 0.00 (0.00-0.01) x10^3u/L Lymphocytes % 8.3 L (24.0-44.0) % Monocytes % 7.0 (0.0-12.0) % Eosinophils % 1.0 (0.00-5.0) % Basophils % 0.2 (0.0-0.4) % Absolute Granulocytes 6.91 H (1.4-6.9) x10^3/uL Basophils # 0.02 (0-0.4) x10^3/uL PT (9.4-12.5) SECONDS INR (0.8-3.0) APTT (25.1-36.5) SECONDS Sodium (137-145) mmol/L Potassium (3.5-5.1) mmol/L Chloride (98-107) mmol/L Carbon Dioxide (22-30) mmol/L Anion Gap (5-15) MEQ/L BUN (9-20) mg/dL Creatinine (0.66-1.25) mg/dL Estimated GFR ML/MIN Glucose (74-106) mg/dL Calcium (8.4-10.2) mg/dL Magnesium (1.6-2.3) mg/dL Total Bilirubin (0.2-1.3) mg/dL AST (17-59) U/L ALT (0-50) U/L Alkaline Phosphatase (38-126) U/L Troponin I (0.000-0.034) ng/mL NT-Pro-B Natriuret Pep (<300) pg/mL Serum Total Protein (6.3-8.2) g/dL Albumin (3.5-5.0) g/dL - Progress Progress: improved Progress Note: 10/29/23 18:45 Nursing note and vital signs reviewed No food or housing insecurities noted All lab results reviewed and shared w pt Bradycardia treated w 1mg IV atripine x2 w mild improvement Hyperkalemia treated w Albuterol neb x1/1amp D50/10units IV Insulin R/1amp NaHCO 3 x2/1gm Ca gluconate/30gms po Kayexalate 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 Pt stable upon transfer 10/29/23 18:49 10/29/23 18:50 10/29/23 18:51 10/29/23 18:53 Counseled pt/family regarding: lab results, diagnosis, rad results Medical Desision Making - Independent Historian Additional History obtained from: EMS - Discussion of managment Care discussed with:: specialist - Diagnostic Testing Diagnostic test were ordered, analyzed, and reviewed by me: Yes Radiological Interpretation: Reviewed by me - Risk of complications The pt has a high risk of morbidity or mortality based on: Drug therapy requiring intensive monitoring for toxicity - Departure Departure Disposition: Transfer Clinical Impression: Symptomatic bradycardia, Renal failure, Acute hyperkalemia Condition: Critical Critical Care Time: Yes Critical Care Time(excluding separately billable procedures): Critical 30-74 mins Referrals: HOSPITAL,'S [Primary Care Provider] - Follow up/PCP as directed
== END 2023-10-15 17:40 | disposition short-term general hospital (02) ==
LOC: ED 16:15
DX: R00.1 Bradycardia, unspecified (principal); N19 Unspecified kidney failure; E87.5 Hyperkalemia; R42 Dizziness and giddiness; I10 Essential (primary) hypertension; E11.9 Type 2 diabetes mellitus without complications; Z79.84 Long term (current) use of oral hypoglycemic drugs; Z79.01 Long term (current) use of anticoagulants; Z79.899 Other long term (current) drug therapy; Z28.310 Unvaccinated for COVID-19
CPT/HCPCS: 36000; 36415; 71045; 80053; 83735; 83880; 84484; 85025; 85610; 85730; 93005; 94640; 96374; 96375; 96376; 99285; J0461; J0612; J1815; J7609; A9270-GY

== ENCOUNTER 2025-01-05 16:55 | Observation (INO) | payer OTHER ==
--- NOTE | 2025-01-05 17:01 | ERPHSYRPT ---
- History of Present Illness Time Seen by Provider: 01/05/25 17:01 Source: patient, family Exam Limitations: no limitations Physician History: This is an overweight 84-year-old white male patient who arrives by private vehicle accompanied by his spouse who receives his primary medical care at the [facility] and presents secondary to nearly passing out secondary to dizziness. 12 days ago, the patient was taken off of metformin because of its negative effects on this patient's renal function. He was placed on alogliptin. This was not controlling his blood sugar and before he fell, he states his blood sugar was in the 400 range. He found a single metformin tablet and took that pill and by the time he arrived to the emergency department, his blood sugar was 189 and he states his symptoms that he had before he arrived have resolved and he is feeling much better. He did not suffer any head injury. He has no pain complaints. He denies chest pain and he denies shortness of breath. Patient has a history of diabetes, hypertension, hyperlipidemia and is taking Xarelto. Timing/Duration: today Severity: mild Character of Deficits: none Deficits: no difficulties Baseline/Normal Cognition: alert oriented x 3 Current Cognition: alert oriented x 3 Baseline Gait: walks w/o assistance Associated Symptoms: other (Was dizzy before and had near syncope. Those symptoms have now resolved), No loss of consciousness, No nausea, No vomiting, No weakness, No chest pain Allergies/Adverse Reactions: No Known Drug Allergies Allergy (Verified 10/15/23 16:22) Home Medications: Metformin HCl [Glucophage] 500 mg PO BID 12/29/20 [History] Alogliptin Benzoate [Alogliptin] 12.5 mg PO DAILY 12/30/20 [History] Lisinopril 20 mg [Zestril 20 MG] 20 mg PO DAILY 12/30/20 [History] Meclizine HCl 12.5 mg PO Q6HPRN PRN 12/30/20 [History] Terazosin HCl 5 mg PO HS 12/30/20 [History] Amlodipine Besylate 5 mg [Norvasc 5 mg] 5 mg PO DAILY 10/15/23 [History] Metoprolol Succinate 100 mg [Toprol Xl 100 MG] 100 mg PO DAILY 10/15/23 [History] Rivaroxaban 10 mg Tablet [Xarelto 10 mg Tablet] 15 mg PO DAILY 10/15/23 [History] Rosuvastatin Calcium 10 mg PO DAILY 10/15/23 [History] Hx Tetanus, Diphtheria Vaccination/Date Given: No Hx Influenza Vaccination/Date Given: No Hx Pneumococcal Vaccination/Date Given: Yes Travel Risk - International Travel Have you traveled outside of the country in past 3 weeks: No - Emerging Infectious Disease Are you exhibiting symptoms associated with any current EIDs: No - Review of Systems Constitutional: No Symptoms Eyes: No Symptoms Ears, Nose, & Throat: No Symptoms Respiratory: No Symptoms Cardiac: No Symptoms Abdominal/Gastrointestinal: No Symptoms Genitourinary Symptoms: No Symptoms Musculoskeletal: No Symptoms Skin: No Symptoms Neurological: Dizziness Psychological: No Symptoms Endocrine: No Symptoms Hematologic/Lymphatic: No Symptoms Immunological/Allergic: No Symptoms All Other Systems: Reviewed and Negative - Past Medical History Pertinent Past Medical History: Yes Neurological History: No Pertinent History ENT History: Cataracts Cardiac History: Hypertension Respiratory History: No Pertinent History Endocrine Medical History: Diabetes Type II Musculoskeletal History: No Pertinent History GI Medical History: No Pertinent History History: No Pertinent History Psycho-Social History: No Pertinent History Male Reproductive Disorders: No Pertinent History - Past Surgical History Past Surgical History: No - Social History Smoking Status: Former smoker Exposure to second hand smoke: Yes Drug Use: none Patient Lives Alone: No - Nursing Vital Signs Nursing Vital Signs: Initial Vital Signs Pulse Rate 63 01/05/25 17:03 Respiratory Rate 33 H 01/05/25 17:03 Blood Pressure 141/59 01/05/25 17:03 O2 Sat by Pulse Oximetry 96 01/05/25 17:03 Pain Scale Pain Intensity 0 - [place] Coma Scale Best Eye Response ([place]): (4) open spontaneously Best Verbal Response ([place]): (5) oriented Best Motor Response ([place]): (6) obeys commands [place] Total: 15 - Physical Exam General Appearance: no apparent distress, alert, anxiety, obese Eye Exam: bilateral eye: normal inspection, PERRL, EOMI Ears, Nose, Throat Exam: normal ENT inspection, moist mucous membranes Neck Exam: normal inspection, non-tender, supple, carotid bruit Respiratory: normal breath sounds, lungs clear, airway intact, No chest tenderness, No respiratory distress Cardiovascular: regular rate/rhythm, normal heart sounds, normal peripheral pulses Gastrointestinal: soft, normal bowel sounds, No tenderness Rectal Exam: not done Back Exam: normal inspection, normal range of motion, No CVA tenderness, No vertebral tenderness Extremity Exam: normal inspection, normal range of motion, pelvis stable Mental Status: alert, oriented x 3, 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 QTc is 379) Ordered Tests: Active Orders 24 hr Category Date Time Status [employer] STAT Care 01/05/25 17:22 Active EKG-ER Only STAT Care 01/05/25 17:19 Active POCT Glucose Check STAT Care 01/05/25 17:19 Active Pulse Oximetry (ED) STAT Care 01/05/25 17:19 Active HEAD WITHOUT CONTRAST [CT] Stat Exams 01/05/25 17:21 Taken BMP Stat Lab 01/05/25 20:35 Completed BMP Stat Lab 01/05/25 22:48 Completed CBC W DIFF Stat Lab 01/05/25 17:30 Completed CMP Stat Lab 01/05/25 17:30 Completed CULTURE,URINE Stat Lab 01/05/25 19:26 Received ETHYL ALCOHOL Stat Lab 01/05/25 17:30 Completed POCT GLUCOSE Stat Lab 01/05/25 17:23 Completed UA W/RFX UR CULTURE Stat Lab 01/05/25 19:26 Completed Medication Summary Discontinued Medications Generic Name Dose Route Start Last Admin Trade Name Freq PRN Reason Stop Dose Admin Albuterol Sulfate Confirm 01/05/25 21:49 Albuterol Sulfate 2.5 Mg/3 Ml Neb Administered 01/05/25 21:50 Dose 2.5 mg IH .STK-MED ONE Albuterol Sulfate 2.5 mg 01/05/25 21:52 01/05/25 21:53 Albuterol Sulfate 2.5 Mg/3 Ml Neb IH 01/05/25 21:53 2.5 mg STAT ONE Administration Calcium Gluconate 1,000 mg 01/05/25 17:57 01/05/25 18:48 Calcium Gluconate 1000 Mg/10 Ml Vial IV 01/05/25 17:58 1,000 mg STAT ONE Administration Calcium Gluconate Confirm 01/05/25 18:46 Calcium Gluconate 1000 Mg/10 Ml Vial Administered 01/05/25 18:47 Dose 1,000 mg IV .STK-MED ONE Dextrose 50 ml 01/05/25 17:57 01/05/25 18:48 Dextrose 50%-Water 50 Ml Abboject IV 01/05/25 17:58 50 ml STAT ONE Administration Dextrose Confirm 01/05/25 18:46 Dextrose 50%-Water 50 Ml Abboject Administered 01/05/25 18:47 Dose 50 ml IV .STK-MED ONE Dextrose 50 ml 01/05/25 21:00 01/05/25 21:13 Dextrose 50%-Water 50 Ml Abboject IV 01/05/25 21:01 50 ml STAT STA Administration Dextrose Confirm 01/05/25 21:07 Dextrose 50%-Water 50 Ml Abboject Administered 01/05/25 21:08 Dose 50 ml IV .STK-MED ONE Furosemide 20 mg 01/05/25 21:02 01/05/25 21:12 Furosemide 20 Mg/Vial IV 01/05/25 21:03 20 mg ONCE ONE Administration Furosemide Confirm 01/05/25 21:07 Furosemide 20 Mg/Vial Administered 01/05/25 21:08 Dose 20 mg .ROUTE .STK-MED ONE Sodium Chloride 500 mls @ 250 mls/hr 01/05/25 21:01 01/05/25 23:11 Sodium Chloride 0.9% 500 Ml IV 01/05/25 23:00 Infused .Q2H STA Infusion Sodium Chloride Confirm 01/05/25 21:07 Sodium Chloride 0.9% 500 Ml Administered 01/05/25 21:08 Dose 500 mls @ ud IV .STK-MED ONE Insulin Human Regular 4 unit 01/05/25 21:00 01/05/25 21:27 Insulin Regular, Human 1 Unit IV 01/05/25 21:01 4 unit STAT STA Administration Insulin Human Regular Confirm 01/05/25 21:06 Insulin Regular, Human 1 Unit Administered 01/05/25 21:07 Dose 4 unit .ROUTE .STK-MED ONE Sodium Bicarbonate 50 meq 01/05/25 17:57 01/05/25 18:48 Sodium Bicarbonate 1 Meq/Ml 50ml Syringe IV 01/05/25 17:58 50 meq STAT ONE Administration Sodium Bicarbonate Confirm 01/05/25 18:46 Sodium Bicarbonate 1 Meq/Ml 50ml Syringe Administered 01/05/25 18:47 Dose 50 meq IV .STK-MED ONE Sodium Polystyrene Sulfonate 30 g 01/05/25 23:28 Sodium Polystyrene Sulfonate 15 G/60 Ml Bottle PO 01/05/25 23:29 STAT ONE Lab/Rad Data: Laboratory Result Diagrams 01/05/25 17:30 01/05/25 22:48 Laboratory Results 01/05/25 01/05/25 01/05/25 Range/Units 22:48 20:35 19:26 WBC (4.23-9.07) x10^3/uL RBC (4.63-6.08) x10^6/uL Hgb (13.7-17.5) g/dL Hct (40.1-51.0) % MCV (79.0-92.2) fL MCH (25.7-32.2) pg MCHC (32.3-36.5) g/dL RDW (11.6-14.4) % Plt Count (163-337) x10^3/uL MPV (9.4-12.4) fL Gran % (34.0-67.9) % Immature Gran % (Auto) (0.001-0.429) % Nucleat RBC Rel Count (0.00-0.2) % Eos # (Auto) (0.04-0.54) x10^3/uL Immature Gran # (Auto) (0.001-0.031) x10^3u/L Absolute Lymphs (auto) (1.32-3.57) x10^3/uL Absolute Monos (auto) (0.30-0.82) x10^3/uL Absolute Nucleated RBC (0.00-0.012) x10^3u/L Lymphocytes % (21.8-53.1) % Monocytes % (5.3-12.2) % Eosinophils % (0.8-7.0) % Basophils % (0.2-1.2) % Absolute Granulocytes (1.78-5.38) x10^3/uL Basophils # (0.01-0.08) x10^3/uL Sodium 140 138 (135-145) mmol/L Potassium 5.3 H D 7.0 H* (3.5-5.1) mmol/L Chloride 107 107 (98-107) mmol/L Carbon Dioxide 20 L 20 L (22-30) mmol/L Anion Gap 17.8 H 18.3 H (5-15) MEQ/L BUN 49 H 50 H (9-20) mg/dL Creatinine 3.33 H 3.37 H (0.66-1.25) mg/dL Estimated GFR 17.3 17.1 ML/MIN Glucose 184 H 209 H (74-106) mg/dL POC Glucometer (74 to 106) mg/dL Calcium 8.7 8.7 (8.4-10.2) mg/dL Total Bilirubin (0.2-1.3) mg/dL AST (17-59) U/L ALT (0-50) U/L Alkaline Phosphatase (38-126) U/L Serum Total Protein (6.3-8.2) g/dL Albumin (3.5-5.0) g/dL Urine Color Yellow (Yellow) Urine Appearance Clear (Clear) Urine pH 5.0 (4.6-8.0) Ur Specific [place] 1.015 (1.005-1.030) Urine Protein 30 (Negative) Urine Glucose (UA) 250 A (Negative) mg/dL Urine Ketones Negative (Negative) Urine Blood Negative (Negative) Urine Nitrite Negative (Negative) Urine Bilirubin Negative (Negative) Urine Urobilinogen 0.2 (0.2) mg/dL Ur Leukocyte Esterase Negative (Negative) U Hyaline Cast (Auto) NONE SEEN (0-2) /LPF Urine Microscopic RBC 0-2 (0-5) /HPF Urine Microscopic WBC 0-2 (0-5) /HPF Ur Epithelial Cells None Seen (None Seen) /HPF Urine Bacteria None Seen (None Seen) /HPF Urine Culture Reflexed ORDERED SEPARATELY (NO) Ethyl Alcohol (0-10) mg/dL Slides for Path Review 01/05/25 01/05/25 01/05/25 Range/Units 17:30 17:30 17:23 WBC 4.6 (4.23-9.07) x10^3/uL RBC 3.51 L (4.63-6.08) x10^6/uL Hgb 9.4 L (13.7-17.5) g/dL Hct 29.3 L (40.1-51.0) % MCV 83.5 (79.0-92.2) fL MCH 26.8 (25.7-32.2) pg MCHC 32.1 L (32.3-36.5) g/dL RDW 15.4 H (11.6-14.4) % Plt Count 171 (163-337) x10^3/uL MPV 8.8 L (9.4-12.4) fL Gran % 83.0 H (34.0-67.9) % Immature Gran % (Auto) 0.7 H (0.001-0.429) % Nucleat RBC Rel Count 0.0 (0.00-0.2) % Eos # (Auto) 0.10 (0.04-0.54) x10^3/uL Immature Gran # (Auto) 0.03 (0.001-0.031) x10^3u/L Absolute Lymphs (auto) 0.39 L (1.32-3.57) x10^3/uL Absolute Monos (auto) 0.24 L (0.30-0.82) x10^3/uL Absolute Nucleated RBC 0.00 (0.00-0.012) x10^3u/L Lymphocytes % 8.5 L (21.8-53.1) % Monocytes % 5.2 L (5.3-12.2) % Eosinophils % 2.2 (0.8-7.0) % Basophils % 0.4 (0.2-1.2) % Absolute Granulocytes 3.80 (1.78-5.38) x10^3/uL Basophils # 0.02 (0.01-0.08) x10^3/uL Sodium 138 (135-145) mmol/L Potassium 6.6 H* (3.5-5.1) mmol/L Chloride 107 (98-107) mmol/L Carbon Dioxide 18 L (22-30) mmol/L Anion Gap 19.2 H (5-15) MEQ/L BUN 50 H (9-20) mg/dL Creatinine 3.67 H (0.66-1.25) mg/dL Estimated GFR 15.4 ML/MIN Glucose 190 H (74-106) mg/dL POC Glucometer 186 H (74 to 106) mg/dL Calcium 8.5 (8.4-10.2) mg/dL Total Bilirubin 0.50 (0.2-1.3) mg/dL AST 24 (17-59) U/L ALT 22 (0-50) U/L Alkaline Phosphatase 128 H (38-126) U/L Serum Total Protein 7.7 (6.3-8.2) g/dL Albumin 4.3 (3.5-5.0) g/dL Urine Color (Yellow) Urine Appearance (Clear) Urine pH (4.6-8.0) Ur Specific [place] (1.005-1.030) Urine Protein (Negative) Urine Glucose (UA) (Negative) mg/dL Urine Ketones (Negative) Urine Blood (Negative) Urine Nitrite (Negative) Urine Bilirubin (Negative) Urine Urobilinogen (0.2) mg/dL Ur Leukocyte Esterase (Negative) U Hyaline Cast (Auto) (0-2) /LPF Urine Microscopic RBC (0-5) /HPF Urine Microscopic WBC (0-5) /HPF Ur Epithelial Cells (None Seen) /HPF Urine Bacteria (None Seen) /HPF Urine Culture Reflexed (NO) Ethyl Alcohol < 10 (0-10) mg/dL Slides for Path Review YES - Progress Progress: improved Progress Note: 01/05/25 19:31 My medical decision making of the assignment of moderate to high complexity is based on review of the patient's past medical history, review the patient's medication list, reviewed patient drug allergy list, history present illness and physical findings on examination. The workup of this patient included CT scan of head, intravenous line placement, urinalysis, alcohol level, twelve-lead EKG, troponin level, CBC, CMP, magnesium level. Differential diagnosis includes but is not limited to syncope, acute intracranial abnormality, anemia, arrhythmia, myocardial infarction, electrolyte abnormalities, dehydration, urinary tract infection 01/05/25 23:30 I interpreted the patient's laboratory data results. The initial results show a GFR of 15 and potassium of 6.6. We will provide the patient with 1 amp dextrose 50, calcium gluconate intravenously, and bicarb. We will slowly rehydrate him and recheck a BMP. I interpreted the patient's BMP which shows repeat potassium to be 7.0. Blood sugar is 190. We will repeat the 1 amp of dextrose 50, Ventolin nebulizer treatment, 4 units of intravenous regular insulin, normal saline at 250 cc an hour and 20 mg of intravenous Lasix. I spoke with Dr. Peralta, our telehospitalist on at this time. He stated that if we can get his potassium level to decrease he will keep the patient here. After the above second intervention/regimen, the repeat blood sugar is 184 and the repeat potassium is 5.3. His anion gap is starting to decrease. I spoke with the telemetry hospitalist again and informed him of the lab results and he accepts the patient to be placed in observation. He would like 30 g of oral Kayexalate. 01/05/25 23:[address] scan of the head was interpreted by the radiologist and I reviewed the impression. The impression states normal CT scan of the head document Counseled pt/family regarding: lab results, diagnosis, rad results Medical Desision Making - Diagnostic Testing Diagnostic test were ordered, analyzed, and reviewed by me: Yes Radiological Interpretation: Reviewed by me, Teleradiologist Report - Risk of complications The pt has a high risk of morbidity or mortality based on: Decision regarding hospitilization or escalation of hosp level of care - Departure Departure Disposition: Observation Clinical Impression: Dizziness, Hyperkalemia, Chronic renal failure Condition: Fair Critical Care Time: Yes Critical Care Time(excluding separately billable procedures): Critical 30-74 mins (45) Referrals: HOSPITAL,'S [Primary Care Provider] - Follow up/PCP as directed
[2025-01-05 17:36] LABS: BASOPHIL % 0.4 % (0.2-1.2); Basophil (Absolute #) 0.02 x10^3/uL (0.01-0.08); Eosinophil % 2.2 % (0.8-7.0); Hematocrit 29.3 % (40.1-51.0); Hemoglobin 9.4 g/dL (13.7-17.5); IMMATURE GRAN # 0.03 x10^3u/L (0.001-0.031); IMMATURE GRAN % 0.7 % (0.001-0.429); Lymphocyte (Absolute #) 0.39 x10^3/uL (1.32-3.57); Lymphocytes % 8.5 % (21.8-53.1); Mean Cell Volume 83.5 fL (79.0-92.2); Mean Corpuscular Hemoglobin 26.8 pg (25.7-32.2); Mean Corpuscular Hgb Concent. 32.1 g/dL (32.3-36.5); Mean Platelet Volume 8.8 fL (9.4-12.4); Monocyte (Absolute #) 0.24 x10^3/uL (0.30-0.82); Monocytes % 5.2 % (5.3-12.2); Platelet Count 171 x10^3/uL (163-337); Red Blood Count 3.51 x10^6/uL (4.63-6.08); Red Cell Distribution Width 15.4 % (11.6-14.4); White Blood Count 4.6 x10^3/uL (4.23-9.07)
[2025-01-05 17:48] LABS: ALBUMIN 4.3 g/dL (3.5-5.0); ALKALINE PHOSPHATASE 128 U/L (38-126); ANION GAP 19.2 MEQ/L (5-15); BLOOD UREA NITROGEN 50 mg/dL (9-20); CHLORIDE 107 mmol/L (98-107); Calcium 8.5 mg/dL (8.4-10.2); Carbon Dioxide 18 mmol/L (22-30); Creatinine 1 3.67 mg/dL (0.66-1.25); EST GLOMERULAR FILTRATION RATE 15.4 ML/MIN; ETHYL ALCOHOL < 10 mg/dL (0-10); Glucose 190 mg/dL (74-106); SGOT/AST 24 U/L (17-59); SGPT/ALT 22 U/L (0-50); SODIUM 138 mmol/L (135-145); Total Protein 7.7 g/dL (6.3-8.2)
[2025-01-05 17:52] LABS: Potassium 6.6 mmol/L (3.5-5.1)
[2025-01-05] MEDS ORDERED: D50W 50 ml Abboject IV ONE ×2 (18:46→21:07)
[2025-01-05] MEDS ORDERED: Calcium Gluconate 10% 1000 MG IV ONE (18:46)
[2025-01-05] MEDS ORDERED: SODIUM BICARBONATE 50 MEQ/50 ML ABBOJECT IV ONE (18:46)
[2025-01-05] MEDS: SODIUM BICARBONATE 50 MEQ/50 ML ABBOJECT IV ONE (18:48)
[2025-01-05] MEDS: Calcium Gluconate 10% 1000 MG IV ONE (18:48)
[2025-01-05] MEDS: D50W 50 ml Abboject IV ONE (18:48)
[2025-01-05 19:39] LABS: Appearance Clear (Clear); Bacteria None Seen /HPF (None Seen); Bilirubin Negative (Negative); Blood Negative (Negative); Epithelial Cells None Seen /HPF (None Seen); Glucose, Urine 250 mg/dL (Negative); Hyaline Casts NONE SEEN /LPF (0-2); Ketones Negative (Negative); Leukocyte Esterase Negative (Negative); Nitrite Negative (Negative); Protein,Urine Dip 30 (Negative); RBC 0-2 /HPF (0-5); Specific Gravity 1.015 (1.005-1.030); Urobilinogen 0.2 mg/dL (0.2); WBC 0-2 /HPF (0-5)
[2025-01-05 20:00] LABS: Slide Review 1 YES
[2025-01-05 20:55] LABS: ANION GAP 18.3 MEQ/L (5-15); Calcium 8.7 mg/dL (8.4-10.2); Creatinine 1 3.37 mg/dL (0.66-1.25); EST GLOMERULAR FILTRATION RATE 17.1 ML/MIN
[2025-01-05] MEDS ORDERED: HUMULIN R ONE (21:06)
[2025-01-05] MEDS ORDERED: Lasix 20 MG/2 ML ONE (21:07)
[2025-01-05] MEDS ORDERED: Sodium Chloride 0.9% 500 ML 500 ML IV ONE (21:07)
[2025-01-05] MEDS: Sodium Chloride 0.9% 500 ML 500 ML IV STA (21:11)
[2025-01-05] MEDS: Lasix 20 MG/2 ML IV ONE (21:12)
[2025-01-05] MEDS: D50W 50 ml Abboject IV STA (21:13)
[2025-01-05] MEDS: HUMULIN R IV STA (21:27)
[2025-01-05] MEDS ORDERED: PROVENTIL 2.5 MG/3 ML NEB IH ONE (21:49)
[2025-01-05] MEDS: PROVENTIL 2.5 MG/3 ML NEB IH ONE (21:53)
[2025-01-05 23:06] LABS: ANION GAP 17.8 MEQ/L (5-15); Calcium 8.7 mg/dL (8.4-10.2); Creatinine 1 3.33 mg/dL (0.66-1.25); EST GLOMERULAR FILTRATION RATE 17.3 ML/MIN
[2025-01-05 23:07] LABS: Potassium 5.3 mmol/L (3.5-5.1)
[2025-01-06] MEDS ORDERED: Kayexylate 15 GM/60 ML ONE ×2 (00:03→00:13)
[2025-01-06] MEDS: Kayexylate 15 GM/60 ML PO ONE (00:12)
[2025-01-06] MEDS ORDERED: Zofran 4 MG/2 ML VIAL IV PRN (00:51)
[2025-01-06] MEDS ORDERED: HUMULIN R SQ PRN (00:51)
[2025-01-06] MEDS ORDERED: NON-FORMULARY ITEM (Meclizine Hcl [Meclizine Hcl] 12.5 MG Tablet) PO PRN (03:27)
[2025-01-06] MEDS: Sodium Chloride 0.9% 1000 ML 1,000 ML IV SCH (03:28)
--- NOTE | 2025-01-06 05:06 | PCM.HP ---
History of Present Illness - Chief Complaint Chief Complaint: Hyperkalemia Date: 01/05/25 History of Present Illness: is a 84 year old male with a history of diabetes, hypertension, hyperlipidemia, and CKD who usually receives care in the [facility] and who pre sented to the ED after nearly passing out secondary to dizziness. 12 days ago, the patient was taken off of metformin because of its negative effects on this patient's renal function and he was instead placed on alogliptin. This was not controlling his blood sugar and before he fell, he states his blood sugar was in the 400 range. He found a single metformin tablet and took that pill and by the time he arrived to the emergency department, his blood sugar was 189 and he states his symptoms that he had before he arrived have resolved and he is feeling much better. He did not suffer any head injury. He has no pain complaints. He denies chest pain and he denies shortness of breath. He denied any leg edema. He denies any recent vomiting or diarrhea, any recent change in oral fluid intake, and any OTC consumption of NSAIDs. In the ED, the patient was noted to have LIZETT with hyperkalemia. A bed in the [facility] was not available. He states that he has had prostate issues with lower urinary tract symptoms for approximately 2 years, but these are unchanged. - Review of Systems Constitutional: No Symptoms Eyes: No Symptoms Ears, Nose, & Throat: No Symptoms Respiratory: No Symptoms Cardiac: Syncope (near syncope, no LOC) Abdominal/Gastrointestinal: No Symptoms Genitourinary Symptoms: No Symptoms Musculoskeletal: No Symptoms Skin: No Symptoms Neurological: Dizziness Psychological: No Symptoms Endocrine: No Symptoms Hematologic/Lymphatic: No Symptoms Immunological/Allergic: No Symptoms All Other Systems: Reviewed and Negative Medications & Allergies Home Medications: Home Medication List Metformin HCl [Glucophage] 500 mg PO BID 12/29/20 [History Confirmed 01/05/25] Alogliptin Benzoate [Alogliptin] 12.5 mg PO DAILY 12/30/20 [History Confirmed 01/05/25] Lisinopril 20 mg [Zestril 20 MG] 20 mg PO DAILY 12/30/20 [History Confirmed 01/05/25] Meclizine HCl 12.5 mg PO Q6HPRN PRN 12/30/20 [History Confirmed 01/05/25] Terazosin HCl 5 mg PO HS 12/30/20 [History Confirmed 01/05/25] Amlodipine Besylate 5 mg [Norvasc 5 mg] 5 mg PO DAILY 10/15/23 [History Confirmed 01/05/25] Metoprolol Succinate 100 mg [Toprol Xl 100 MG] 100 mg PO DAILY 10/15/23 [History Confirmed 01/05/25] Rivaroxaban 10 mg Tablet [Xarelto 10 mg Tablet] 15 mg PO DAILY 10/15/23 [History Confirmed 01/05/25] Rosuvastatin Calcium 10 mg PO DAILY 10/15/23 [History Confirmed 01/05/25] Allergies/Adverse Reactions: Allergies Allergy/AdvReac Type Severity Reaction Status Date / Time No Known Drug Allergies Allergy Verified 10/15/23 16:22 - Past Medical History Past Medical History: Yes Neurological History: No Pertinent History ENT History: Cataracts Cardiac History: Hypertension Respiratory History: No Pertinent History Endocrine Medical History: Diabetes Type II Musculoskelatal History: No Pertinent History GI Medical History: No Pertinent History History: No Pertinent History Pyscho-Social History: No Pertinent History Male Reproductive Disorders: No Pertinent History - Past Surgical History Past Surgical History: No Significant Family History: no pertinent family hx - Social History Smoking Status: Former smoker Exposure to second hand smoke: Yes Alcohol: None Drug Use: none - Social Determinants of Health Will the patient participate in the screening: Yes Do you worry about a steady place to live?: No Do you have any problems with any of the following?: No known problems In the past 12 months,have you had to go without utilities?: No Have you or anyone in your house had to go without enough: No Transportation Issues: No Has anyone in your support network made you feel unsafe?: No Does the patient want assistance with any of the above?: No - Physical Exam Vital Signs: Vital Signs - 24 hr Temp Pulse Resp BP BP Pulse Ox 01/06/25 03:20 97.1 F 68 16 140/66 96 01/06/25 00:51 93 L 01/06/25 00:43 97.1 F 66 18 146/66 96 01/06/25 00:01 58 L 19 119/51 96 01/05/25 23:50 66 20 95 01/05/25 23:48 70 20 93 L 01/05/25 23:30 75 23 121/54 78 L 01/05/25 23:15 60 15 113/55 96 01/05/25 23:00 59 L 19 127/52 95 01/05/25 22:45 59 L 18 132/61 96 01/05/25 22:30 64 22 141/67 96 01/05/25 22:15 64 24 136/50 96 01/05/25 22:00 65 22 164/75 99 01/05/25 21:45 66 22 162/87 100 01/05/25 21:30 65 20 148/64 96 01/05/25 21:15 62 22 160/52 96 01/05/25 21:00 59 L 22 146/64 96 01/05/25 20:45 60 22 142/64 96 01/05/25 20:30 59 L 20 155/67 95 01/05/25 20:15 62 19 148/63 95 01/05/25 20:00 62 21 155/67 97 01/05/25 19:46 72 23 146/57 95 01/05/25 19:30 63 23 183/72 96 01/05/25 19:15 70 22 160/68 95 01/05/25 19:00 70 22 150/61 95 01/05/25 18:45 75 25 H 147/57 95 01/05/25 18:36 62 L 01/05/25 18:30 61 29 H 133/58 97 01/05/25 18:15 61 30 H 145/62 97 01/05/25 18:00 66 26 H 127/55 96 01/05/25 17:47 64 30 H 144/57 96 01/05/25 17:30 66 12 129/57 94 L 01/05/25 17:15 66 17 116/53 97 01/05/25 17:04 98.4 F 65 18 141/59 97 01/05/25 17:03 63 33 H 141/59 96 General Appearance: no apparent distress, alert Neurologic Exam: alert, oriented x 3, cooperative, six sigma black trainer II-XII nml as tested, normal mood/affect, nml cerebellar function Eye Exam: PERRL/EOMI, eyes nml inspection Ears, Nose, Throat Exam: normal ENT inspection Neck Exam: normal inspection, non-tender, supple, full range of motion Respiratory Exam: normal breath sounds, lungs clear Cardiovascular Exam: regular rate/rhythm, normal heart sounds Gastrointestinal/Abdomen Exam: soft, normal bowel sounds Back Exam: normal range of motion Extremity Exam: normal inspection, normal range of motion Skin Exam: normal color Results - Labs Lab/Micro Results: Lab Results-Last 24 Hours 01/05/25 01/05/25 01/05/25 Range/Units 17:23 17:30 17:30 WBC 4.6 (4.23-9.07) x10^3/uL RBC 3.51 L (4.63-6.08) x10^6/uL Hgb 9.4 L (13.7-17.5) g/dL Hct 29.3 L (40.1-51.0) % MCV 83.5 (79.0-92.2) fL MCH 26.8 (25.7-32.2) pg MCHC 32.1 L (32.3-36.5) g/dL RDW 15.4 H (11.6-14.4) % Plt Count 171 (163-337) x10^3/uL MPV 8.8 L (9.4-12.4) fL Gran % 83.0 H (34.0-67.9) % Immature Gran % (Auto) 0.7 H (0.001-0.429) % Nucleat RBC Rel Count 0.0 (0.00-0.2) % Eos # (Auto) 0.10 (0.04-0.54) x10^3/uL Immature Gran # (Auto) 0.03 (0.001-0.031) x10^3u/L Absolute Lymphs (auto) 0.39 L (1.32-3.57) x10^3/uL Absolute Monos (auto) 0.24 L (0.30-0.82) x10^3/uL Absolute Nucleated RBC 0.00 (0.00-0.012) x10^3u/L Lymphocytes % 8.5 L (21.8-53.1) % Monocytes % 5.2 L (5.3-12.2) % Eosinophils % 2.2 (0.8-7.0) % Basophils % 0.4 (0.2-1.2) % Absolute Granulocytes 3.80 (1.78-5.38) x10^3/uL Basophils # 0.02 (0.01-0.08) x10^3/uL Sodium 138 (135-145) mmol/L Potassium 6.6 H* (3.5-5.1) mmol/L Chloride 107 (98-107) mmol/L Carbon Dioxide 18 L (22-30) mmol/L Anion Gap 19.2 H (5-15) MEQ/L BUN 50 H (9-20) mg/dL Creatinine 3.67 H (0.66-1.25) mg/dL Estimated GFR 15.4 ML/MIN Glucose 190 H (74-106) mg/dL POC Glucometer 186 H (74 to 106) mg/dL Calcium 8.5 (8.4-10.2) mg/dL Total Bilirubin 0.50 (0.2-1.3) mg/dL AST 24 (17-59) U/L ALT 22 (0-50) U/L Alkaline Phosphatase 128 H (38-126) U/L Serum Total Protein 7.7 (6.3-8.2) g/dL Albumin 4.3 (3.5-5.0) g/dL Urine Color (Yellow) Urine Appearance (Clear) Urine pH (4.6-8.0) Ur Specific Ninole (1.005-1.030) Urine Protein (Negative) Urine Glucose (UA) (Negative) mg/dL Urine Ketones (Negative) Urine Blood (Negative) Urine Nitrite (Negative) Urine Bilirubin (Negative) Urine Urobilinogen (0.2) mg/dL Ur Leukocyte Esterase (Negative) U Hyaline Cast (Auto) (0-2) /LPF Urine Microscopic RBC (0-5) /HPF Urine Microscopic WBC (0-5) /HPF Ur Epithelial Cells (None Seen) /HPF Urine Bacteria (None Seen) /HPF Urine Culture Reflexed (NO) Ethyl Alcohol < 10 (0-10) mg/dL Slides for Path Review YES 01/05/25 01/05/25 01/05/25 Range/Units 19:26 20:35 22:48 WBC (4.23-9.07) x10^3/uL RBC (4.63-6.08) x10^6/uL Hgb (13.7-17.5) g/dL Hct (40.1-51.0) % MCV (79.0-92.2) fL MCH (25.7-32.2) pg MCHC (32.3-36.5) g/dL RDW (11.6-14.4) % Plt Count (163-337) x10^3/uL MPV (9.4-12.4) fL Gran % (34.0-67.9) % Immature Gran % (Auto) (0.001-0.429) % Nucleat RBC Rel Count (0.00-0.2) % Eos # (Auto) (0.04-0.54) x10^3/uL Immature Gran # (Auto) (0.001-0.031) x10^3u/L Absolute Lymphs (auto) (1.32-3.57) x10^3/uL Absolute Monos (auto) (0.30-0.82) x10^3/uL Absolute Nucleated RBC (0.00-0.012) x10^3u/L Lymphocytes % (21.8-53.1) % Monocytes % (5.3-12.2) % Eosinophils % (0.8-7.0) % Basophils % (0.2-1.2) % Absolute Granulocytes (1.78-5.38) x10^3/uL Basophils # (0.01-0.08) x10^3/uL Sodium 138 140 (135-145) mmol/L Potassium 7.0 H* 5.3 H D (3.5-5.1) mmol/L Chloride 107 107 (98-107) mmol/L Carbon Dioxide 20 L 20 L (22-30) mmol/L Anion Gap 18.3 H 17.8 H (5-15) MEQ/L BUN 50 H 49 H (9-20) mg/dL Creatinine 3.37 H 3.33 H (0.66-1.25) mg/dL Estimated GFR 17.1 17.3 ML/MIN Glucose 209 H 184 H (74-106) mg/dL POC Glucometer (74 to 106) mg/dL Calcium 8.7 8.7 (8.4-10.2) mg/dL Total Bilirubin (0.2-1.3) mg/dL AST (17-59) U/L ALT (0-50) U/L Alkaline Phosphatase (38-126) U/L Serum Total Protein (6.3-8.2) g/dL Albumin (3.5-5.0) g/dL Urine Color Yellow (Yellow) Urine Appearance Clear (Clear) Urine pH 5.0 (4.6-8.0) Ur Specific [place] 1.015 (1.005-1.030) Urine Protein 30 (Negative) Urine Glucose (UA) 250 A (Negative) mg/dL Urine Ketones Negative (Negative) Urine Blood Negative (Negative) Urine Nitrite Negative (Negative) Urine Bilirubin Negative (Negative) Urine Urobilinogen 0.2 (0.2) mg/dL Ur Leukocyte Esterase Negative (Negative) U Hyaline Cast (Auto) NONE SEEN (0-2) /LPF Urine Microscopic RBC 0-2 (0-5) /HPF Urine Microscopic WBC 0-2 (0-5) /HPF Ur Epithelial Cells None Seen (None Seen) /HPF Urine Bacteria None Seen (None Seen) /HPF Urine Culture Reflexed ORDERED SEPARATELY (NO) Ethyl Alcohol (0-10) mg/dL Slides for Path Review - Radiology Impressions Radiology Exams & Impressions: Radiology Procedures Category Date Time Status HEAD WITHOUT CONTRAST [CT] Stat Exams 01/05/25 17:21 Taken US ABDOMEN LIMITED [ABDOMINAL-LIMITED] [US] Routine Exams 01/06/25 03:57 Ordered - Other Procedures and Tests Respiratory Therapy 01/06/25 00:51 EKG REPEAT IN AM Assessment/Plan (1) LIZETT (acute kidney injury) Current Visit: Yes Status: Acute Assessment & Plan: IV fluids. Hold lisinopril. Bilateral renal US ordered. Will need nephrology consult in AM. Code(s): N17.9 - ACUTE KIDNEY FAILURE, UNSPECIFIED (2) Acute hyperkalemia Current Visit: No Status: Acute Assessment & Plan: Monitor on tele. Received kayexalate in ED. Hold lisinopril. Code(s): E87.5 - HYPERKALEMIA (3) DM2 (diabetes mellitus, type 2) Current Visit: Yes Status: Acute Assessment & Plan: Continue to hold metformin. Continue regimen otherwise and monitor sugars on ISS. (4) Dizziness Current Visit: Yes Status: Acute Assessment & Plan: Possibly due to dehydration and LIZETT on CKD. Will monitor on tele, check AM orthostatics, obtain ECHO, and PT eval. Code(s): R42 - DIZZINESS AND GIDDINESS Telemedicine Encounter - Telemedicine Encounter Telemedicine Encounter: "The entirety of this encounter was performed via Telemedicine" This visit was performed using real-time audio and video connection between my location and thepatients locationwith the assistance of a surrogateat the patients location. Written or verbal consent was obtained from the patient/guardian to perform this [facility]. Any patient questions regarding the telemedicine interaction were answered. Please note that this admission required 46 minutes to complete.
[2025-01-06 05:14] LABS: Absolute Neutrophil Ct (ANC) 3.57 x10^3/uL (1.78-5.38); BASOPHIL % 0.7 % (0.2-1.2); Basophil (Absolute #) 0.03 x10^3/uL (0.01-0.08); Eosinophil % 2.2 % (0.8-7.0); Hematocrit 27.5 % (40.1-51.0); Hemoglobin 8.8 g/dL (13.7-17.5); IMMATURE GRAN # 0.02 x10^3u/L (0.001-0.031); IMMATURE GRAN % 0.4 % (0.001-0.429); Lymphocyte (Absolute #) 0.48 x10^3/uL (1.32-3.57); Lymphocytes % 10.5 % (21.8-53.1); Mean Cell Volume 81.8 fL (79.0-92.2); Mean Corpuscular Hemoglobin 26.2 pg (25.7-32.2); Mean Platelet Volume 8.9 fL (9.4-12.4); Monocyte (Absolute #) 0.38 x10^3/uL (0.30-0.82); Monocytes % 8.3 % (5.3-12.2); Neutrophil % 77.9 % (34.0-67.9); Platelet Count 161 x10^3/uL (163-337); Red Blood Count 3.36 x10^6/uL (4.63-6.08); Red Cell Distribution Width 15.3 % (11.6-14.4); White Blood Count 4.6 x10^3/uL (4.23-9.07)
[2025-01-06 06:03] LABS: Slide Review 1 YES
[2025-01-06 06:04] LABS: ALBUMIN 3.9 g/dL (3.5-5.0); BILIRUBIN,TOTAL 0.5 mg/dL (0.2-1.3); Calcium 8.5 mg/dL (8.4-10.2); Creatinine 1 3.25 mg/dL (0.66-1.25); EST GLOMERULAR FILTRATION RATE 17.8 ML/MIN; Potassium 5.5 mmol/L (3.5-5.1); Total Protein 7.1 g/dL (6.3-8.2)
[2025-01-06] MEDS ORDERED: ANTIVERT 25 MG PO PRN (07:23)
--- NOTE | 2025-01-06 08:43 | XRAY ---
Indication: Near syncope. Multiple contiguous axial images obtained through the head without contrast. Comparison: None Age-appropriate global atrophy and minimal periventricular degenerative micro-ischemia. No acute intracranial hemorrhage, abnormal extra-axial fluid collection, or mass effect. Fourth ventricle is midline without hydrocephalus. Sosa-white matter differentiation preserved. Bony calvarium intact. Visualized paranasal sinuses and mastoid air cells are clear. Impression: Nonacute senile brain.
[2025-01-06] MEDS: VELTASSA PO STA ×2 (09:00→16:17)
[2025-01-06] MEDS ORDERED: NON-FORMULARY ITEM (Alogliptin Benzoate [Alogliptin] 12.5 MG Tablet) PO SCH (10:00)
[2025-01-06] MEDS ORDERED: NON-FORMULARY ITEM (Rosuvastatin Calcium [Rosuvastatin Calcium] 10 MG Tablet) PO SCH (10:00)
[2025-01-06] MEDS: SODIUM BICARBONATE PO SCH (11:48)
[2025-01-06] MEDS: NORVASC 5 MG PO SCH (11:48)
[2025-01-06] MEDS: Toprol Xl 100 MG PO SCH (11:48)
[2025-01-06] MEDS: Januvia 50 MG PO SCH (11:48)
[2025-01-06] MEDS: XARELTO 10 MG TABLET PO SCH (11:49)
[2025-01-06] MEDS: ZOCOR 20MG PO SCH (11:49)
--- NOTE | 2025-01-06 11:55 | PCM.NOTE ---
Date and Time: 01/06/25 1149 Subjective Assessment: 01/06/25 is a 84 year old male with a history of diabetes, hypertension, hyperlipidemia, and CKD who [facility] [place] [facility]. He presented on 01/05/25 to the ED after nearly passing out secondary to dizziness. 12 days ago, the patient was taken off of metformin because of its negative effects on this patient's renal function and he was instead placed on alogliptin. This was not controlling his blood sugar and before he fell, he states his blood sugar was in the 400 range. He found a single metformin tablet and took that pill and by the time he arrived to the emergency department, his blood sugar was 189 and he states his symptoms that he had before he arrived have resolved and he is feeling much better. He did not suffer any head injury. He has no pain complaints. He denies chest pain and he denies shortness of breath. He denied any leg edema. He denies any recent vomiting or diarrhea, any recent change in oral fluid intake, and any OTC consumption of NSAIDs. In the ED, the patient was noted to have LIZETT with hyperkalemia. A bed in the [facility] was not available. He s tates that he has had prostate issues with lower urinary tract symptoms for approximately 2 years, but these are unchanged. Today K+ 5.5 and Veltassa ordered. Will recheck this afternoon. He reports no dizziness today. Creat 3.25 and baseline unknown. He states he has no hx of renal disease but looking back at old labs it appears he has CRD. Nephrology consulted. Continue IVF. Echo, CT head, and renal US pending. He denies CP, SOB, abd. pain, N/V/D. - Review of Systems Constitutional: No Fever, No Chills Eyes: No Symptoms Ears, Nose, & Throat: No Symptoms Respiratory: No Cough, No Short Of Breath Cardiac: No Chest Pain, No Edema, No Syncope Abdominal/Gastrointestinal: No Abdominal Pain, No Nausea, No Vomiting, No Diarrhea Genitourinary Symptoms: No Dysuria Musculoskeletal: No Back Pain, No Neck Pain Skin: No Rash Neurological: No Dizziness, No Focal Weakness, No Sensory Changes Psychological: No Symptoms Endocrine: No Symptoms Hematologic/Lymphatic: No Symptoms Immunological/Allergic: No Symptoms Objective Exam General Appearance: no apparent distress, alert Neurologic Exam: alert, oriented x 3, cooperative, normal mood/affect, nml cerebellar function, sensation nml, No motor deficits Skin Exam: normal color, warm, dry Eye Exam: PERRL, EOMI, eyes nml inspection Ears, Nose, Throat Exam: normal ENT inspection, pharynx normal, moist mucous membranes Neck Exam: normal inspection, non-tender, supple, full range of motion Respiratory Exam: normal breath sounds, lungs clear, No respiratory distress Cardiovascular Exam: regular rate/rhythm, normal heart sounds Gastrointestinal/Abdomen Exam: soft, No tenderness, No mass Extremity Exam: normal inspection, normal range of motion Back Exam: normal inspection, normal range of motion, No CVA tenderness, No vertebral tenderness Male Genitalia Exam: deferred Rectal Exam: deferred Objective Data Vital Signs: Vital Signs - 24 hr Temp Pulse Resp BP BP Pulse Ox 01/06/25 07:32 97.8 F 64 17 152/67 94 L 01/06/25 03:20 97.1 F 68 16 140/66 96 01/06/25 00:51 93 L 01/06/25 00:43 97.1 F 66 18 146/66 96 01/06/25 00:01 58 L 19 119/51 96 01/05/25 23:50 66 20 95 01/05/25 23:48 70 20 93 L 01/05/25 23:30 75 23 121/54 78 L 01/05/25 23:15 60 15 113/55 96 01/05/25 23:00 59 L 19 127/52 95 01/05/25 22:45 59 L 18 132/61 96 01/05/25 22:30 64 22 141/67 96 01/05/25 22:15 64 24 136/50 96 01/05/25 22:00 65 22 164/75 99 01/05/25 21:45 66 22 162/87 100 01/05/25 21:30 65 20 148/64 96 01/05/25 21:15 62 22 160/52 96 01/05/25 21:00 59 L 22 146/64 96 01/05/25 20:45 60 22 142/64 96 01/05/25 20:30 59 L 20 155/67 95 01/05/25 20:15 62 19 148/63 95 01/05/25 20:00 62 21 155/67 97 01/05/25 19:46 72 23 146/57 95 01/05/25 19:30 63 23 183/72 96 01/05/25 19:15 70 22 160/68 95 01/05/25 19:00 70 22 150/61 95 01/05/25 18:45 75 25 H 147/57 95 01/05/25 18:36 62 L 01/05/25 18:30 61 29 H 133/58 97 01/05/25 18:15 61 30 H 145/62 97 01/05/25 18:00 66 26 H 127/55 96 01/05/25 17:47 64 30 H 144/57 96 01/05/25 17:30 66 12 129/57 94 L 01/05/25 17:15 66 17 116/53 97 01/05/25 17:04 98.4 F 65 18 141/59 97 01/05/25 17:03 63 33 H 141/59 96 Pain Assessment - Last Documented Pain Intensity 0 Intake and Output: Intake & Output 01/03/25 01/04/25 01/05/25 01/06/25 10:59 11:59 11:59 11:59 Intake Total 120 Balance 120 Weight 93.8 kg Lab Results: Lab Results-Last 24 Hours 01/05/25 01/05/25 01/05/25 Range/Units 17:23 17:30 17:30 WBC 4.6 (4.23-9.07) x10^3/uL RBC 3.51 L (4.63-6.08) x10^6/uL Hgb 9.4 L (13.7-17.5) g/dL Hct 29.3 L (40.1-51.0) % MCV 83.5 (79.0-92.2) fL MCH 26.8 (25.7-32.2) pg MCHC 32.1 L (32.3-36.5) g/dL RDW 15.4 H (11.6-14.4) % Plt Count 171 (163-337) x10^3/uL MPV 8.8 L (9.4-12.4) fL Gran % 83.0 H (34.0-67.9) % Immature Gran % (Auto) 0.7 H (0.001-0.429) % Nucleat RBC Rel Count 0.0 (0.00-0.2) % Eos # (Auto) 0.10 (0.04-0.54) x10^3/uL Immature Gran # (Auto) 0.03 (0.001-0.031) x10^3u/L Absolute Lymphs (auto) 0.39 L (1.32-3.57) x10^3/uL Absolute Monos (auto) 0.24 L (0.30-0.82) x10^3/uL Absolute Nucleated RBC 0.00 (0.00-0.012) x10^3u/L Lymphocytes % 8.5 L (21.8-53.1) % Monocytes % 5.2 L (5.3-12.2) % Eosinophils % 2.2 (0.8-7.0) % Basophils % 0.4 (0.2-1.2) % Absolute Granulocytes 3.80 (1.78-5.38) x10^3/uL Basophils # 0.02 (0.01-0.08) x10^3/uL Sodium 138 (135-145) mmol/L Potassium 6.6 H* (3.5-5.1) mmol/L Chloride 107 (98-107) mmol/L Carbon Dioxide 18 L (22-30) mmol/L Anion Gap 19.2 H (5-15) MEQ/L BUN 50 H (9-20) mg/dL Creatinine 3.67 H (0.66-1.25) mg/dL Estimated GFR 15.4 ML/MIN Glucose 190 H (74-106) mg/dL POC Glucometer 186 H (74 to 106) mg/dL Calcium 8.5 (8.4-10.2) mg/dL Total Bilirubin 0.50 (0.2-1.3) mg/dL AST 24 (17-59) U/L ALT 22 (0-50) U/L Alkaline Phosphatase 128 H (38-126) U/L NT-Pro-B Natriuret Pep (<300) pg/mL Serum Total Protein 7.7 (6.3-8.2) g/dL Albumin 4.3 (3.5-5.0) g/dL Urine Color (Yellow) Urine Appearance (Clear) Urine pH (4.6-8.0) Ur Specific [place] (1.005-1.030) Urine Protein (Negative) Urine Glucose (UA) (Negative) mg/dL Urine Ketones (Negative) Urine Blood (Negative) Urine Nitrite (Negative) Urine Bilirubin (Negative) Urine Urobilinogen (0.2) mg/dL Ur Leukocyte Esterase (Negative) U Hyaline Cast (Auto) (0-2) /LPF Urine Microscopic RBC (0-5) /HPF Urine Microscopic WBC (0-5) /HPF Ur Epithelial Cells (None Seen) /HPF Urine Bacteria (None Seen) /HPF Urine Culture Reflexed (NO) Ethyl Alcohol < 10 (0-10) mg/dL Slides for Path Review YES 01/05/25 01/05/25 01/05/25 Range/Units 19:26 20:35 22:48 WBC (4.23-9.07) x10^3/uL RBC (4.63-6.08) x10^6/uL Hgb (13.7-17.5) g/dL Hct (40.1-51.0) % MCV (79.0-92.2) fL MCH (25.7-32.2) pg MCHC (32.3-36.5) g/dL RDW (11.6-14.4) % Plt Count (163-337) x10^3/uL MPV (9.4-12.4) fL Gran % (34.0-67.9) % Immature Gran % (Auto) (0.001-0.429) % Nucleat RBC Rel Count (0.00-0.2) % Eos # (Auto) (0.04-0.54) x10^3/uL Immature Gran # (Auto) (0.001-0.031) x10^3u/L Absolute Lymphs (auto) (1.32-3.57) x10^3/uL Absolute Monos (auto) (0.30-0.82) x10^3/uL Absolute Nucleated RBC (0.00-0.012) x10^3u/L Lymphocytes % (21.8-53.1) % Monocytes % (5.3-12.2) % Eosinophils % (0.8-7.0) % Basophils % (0.2-1.2) % Absolute Granulocytes (1.78-5.38) x10^3/uL Basophils # (0.01-0.08) x10^3/uL Sodium 138 140 (135-145) mmol/L Potassium 7.0 H* 5.3 H D (3.5-5.1) mmol/L Chloride 107 107 (98-107) mmol/L Carbon Dioxide 20 L 20 L (22-30) mmol/L Anion Gap 18.3 H 17.8 H (5-15) MEQ/L BUN 50 H 49 H (9-20) mg/dL Creatinine 3.37 H 3.33 H (0.66-1.25) mg/dL Estimated GFR 17.1 17.3 ML/MIN Glucose 209 H 184 H (74-106) mg/dL POC Glucometer (74 to 106) mg/dL Calcium 8.7 8.7 (8.4-10.2) mg/dL Total Bilirubin (0.2-1.3) mg/dL AST (17-59) U/L ALT (0-50) U/L Alkaline Phosphatase (38-126) U/L NT-Pro-B Natriuret Pep (<300) pg/mL Serum Total Protein (6.3-8.2) g/dL Albumin (3.5-5.0) g/dL Urine Color Yellow (Yellow) Urine Appearance Clear (Clear) Urine pH 5.0 (4.6-8.0) Ur Specific [place] 1.015 (1.005-1.030) Urine Protein 30 (Negative) Urine Glucose (UA) 250 A (Negative) mg/dL Urine Ketones Negative (Negative) Urine Blood Negative (Negative) Urine Nitrite Negative (Negative) Urine Bilirubin Negative (Negative) Urine Urobilinogen 0.2 (0.2) mg/dL Ur Leukocyte Esterase Negative (Negative) U Hyaline Cast (Auto) NONE SEEN (0-2) /LPF Urine Microscopic RBC 0-2 (0-5) /HPF Urine Microscopic WBC 0-2 (0-5) /HPF Ur Epithelial Cells None Seen (None Seen) /HPF Urine Bacteria None Seen (None Seen) /HPF Urine Culture Reflexed ORDERED SEPARATELY (NO) Ethyl Alcohol (0-10) mg/dL Slides for Path Review 01/06/25 01/06/25 01/06/25 Range/Units 04:55 04:55 07:38 WBC 4.6 (4.23-9.07) x10^3/uL RBC 3.36 L (4.63-6.08) x10^6/uL Hgb 8.8 L (13.7-17.5) g/dL Hct 27.5 L (40.1-51.0) % MCV 81.8 (79.0-92.2) fL MCH 26.2 (25.7-32.2) pg MCHC 32.0 L (32.3-36.5) g/dL RDW 15.3 H (11.6-14.4) % Plt Count 161 L (163-337) x10^3/uL MPV 8.9 L (9.4-12.4) fL Gran % 77.9 H (34.0-67.9) % Immature Gran % (Auto) 0.4 (0.001-0.429) % Nucleat RBC Rel Count 0.0 (0.00-0.2) % Eos # (Auto) 0.10 (0.04-0.54) x10^3/uL Immature Gran # (Auto) 0.02 (0.001-0.031) x10^3u/L Absolute Lymphs (auto) 0.48 L (1.32-3.57) x10^3/uL Absolute Monos (auto) 0.38 (0.30-0.82) x10^3/uL Absolute Nucleated RBC 0.00 (0.00-0.012) x10^3u/L Lymphocytes % 10.5 L (21.8-53.1) % Monocytes % 8.3 (5.3-12.2) % Eosinophils % 2.2 (0.8-7.0) % Basophils % 0.7 (0.2-1.2) % Absolute Granulocytes 3.57 (1.78-5.38) x10^3/uL Basophils # 0.03 (0.01-0.08) x10^3/uL Sodium 141 (135-145) mmol/L Potassium 5.5 H (3.5-5.1) mmol/L Chloride 109 H (98-107) mmol/L Carbon Dioxide 19 L (22-30) mmol/L Anion Gap 18.0 H (5-15) MEQ/L BUN 44 H (9-20) mg/dL Creatinine 3.25 H (0.66-1.25) mg/dL Estimated GFR 17.8 ML/MIN Glucose 172 H (74-106) mg/dL POC Glucometer 150 H (74 to 106) mg/dL Calcium 8.5 (8.4-10.2) mg/dL Total Bilirubin 0.50 (0.2-1.3) mg/dL AST 24 (17-59) U/L ALT 20 (0-50) U/L Alkaline Phosphatase 104 (38-126) U/L NT-Pro-B Natriuret Pep 2480 (<300) pg/mL Serum Total Protein 7.1 (6.3-8.2) g/dL Albumin 3.9 (3.5-5.0) g/dL Urine Color (Yellow) Urine Appearance (Clear) Urine pH (4.6-8.0) Ur Specific [place] (1.005-1.030) Urine Protein (Negative) Urine Glucose (UA) (Negative) mg/dL Urine Ketones (Negative) Urine Blood (Negative) Urine Nitrite (Negative) Urine Bilirubin (Negative) Urine Urobilinogen (0.2) mg/dL Ur Leukocyte Esterase (Negative) U Hyaline Cast (Auto) (0-2) /LPF Urine Microscopic RBC (0-5) /HPF Urine Microscopic WBC (0-5) /HPF Ur Epithelial Cells (None Seen) /HPF Urine Bacteria (None Seen) /HPF Urine Culture Reflexed (NO) Ethyl Alcohol (0-10) mg/dL Slides for Path Review YES Radiology Exams: Radiology Procedures Category Date Time Status ECHO W/2D AND DOPPLER [US] Routine Exams 01/06/25 05:12 Taken HEAD WITHOUT CONTRAST [CT] Stat Exams 01/05/25 17:21 Completed KIDNEY [US] Routine Exams 01/06/25 03:57 Taken Assessment/Plan (1) Acute renal failure superimposed on chronic kidney disease Current Visit: Yes Status: Acute Assessment & Plan: - CReat 3.25- unknown baseline - Nephrology consult - IVF - Renal US: Left renal cyst Code(s): N17.9 - ACUTE KIDNEY FAILURE, UNSPECIFIED; N18.9 - CHRONIC KIDNEY DISEASE, UNSPECIFIED (2) DM2 (diabetes mellitus, type 2) Current Visit: Yes Status: Chronic Qualifiers: Diabetes mellitus fpc insulin use: without intermission coordinator use Assessment & Plan: - A1c- pending - Humalog S/S, Accuchecks ac/hs (3) Dehydration Current Visit: Yes Status: Acute Assessment & Plan: - Anion gap 18 - IVF Code(s): E86.0 - DEHYDRATION (4) Metabolic acidosis Current Visit: Yes Status: Acute Assessment & Plan: - CO2 19 - Started sodium bicarb PO BID Code(s): E87.20 - ACIDOSIS, UNSPECIFIED (5) Hyperkalemia Current Visit: Yes Status: Acute Assessment & Plan: - K+ 5.5 - Veltassa PO x1 - recheck at 1400 - Tele - 2:2 LIZETT Code(s): E87.5 - HYPERKALEMIA (6) Dizziness Current Visit: Yes Status: Resolved Assessment & Plan: - resolved since admission - Meclizine - PT eval VTE: Xarelto PPI: Protonix Next of KIN: Verónica Travisbins, D/C plan: pending nephro recs Code status: Full Code(s): R42 - DIZZINESS AND GIDDINESS
--- NOTE | 2025-01-06 11:56 | XRAY ---
Indication: Acute kidney injury. Two-dimensional renal sonogram performed. Comparison: None Right kidney measures 12.2 x 5.5 x 4.6 cm and left measures 11.8 x 5.7 x 4.8 cm. Normal color perfusion bilaterally. Left kidney demonstrates 2 benign cortical cysts, largest 2.1 cm upper pole. No suspicious solid renal mass or hydronephrosis. Cortical medullary differentiation preserved. Normally distended urinary bladder is grossly unremarkable. Normal right ureteral jet. Left ureteral jet not seen within the allot exam time. Impression: Left renal cysts. Remaining renal sonogram negative.
[2025-01-06] MEDS: Protonix 20MG Tablet PO SCH (12:38)
[2025-01-06 14:45] LABS: MAGNESIUM 2.3 mg/dL (1.6-2.3); Potassium 5.4 mmol/L (3.5-5.1)
[2025-01-06] MEDS: HYTRIN 1 MG PO SCH (21:58)
[2025-01-06] MEDS ORDERED: NON-FORMULARY ITEM (Terazosin Hcl [Terazosin Hcl] 5 MG Capsule) PO SCH (22:00)
[2025-01-07 06:00] LABS: Hematocrit 26.7 % (40.1-51.0); Hemoglobin 8.4 g/dL (13.7-17.5); Mean Cell Volume 83.4 fL (79.0-92.2); Mean Corpuscular Hemoglobin 26.3 pg (25.7-32.2); Mean Corpuscular Hgb Concent. 31.5 g/dL (32.3-36.5); Mean Platelet Volume 9.3 fL (9.4-12.4); Platelet Count 176 x10^3/uL (163-337); Red Cell Distribution Width 15.3 % (11.6-14.4); White Blood Count 4.5 x10^3/uL (4.23-9.07)
[2025-01-07 06:45] LABS: Iron 60 ug/dL (49-181); Iron Saturation 26 % (20-39); TIBC 233 ug/dL (261-497)
[2025-01-07 07:35] LABS: ALBUMIN 3.9 g/dL (3.5-5.0); ANION GAP 15.8 MEQ/L (5-15); BILIRUBIN,TOTAL 0.4 mg/dL (0.2-1.3); Calcium 8.3 mg/dL (8.4-10.2); Creatinine 1 2.72 mg/dL (0.66-1.25); EST GLOMERULAR FILTRATION RATE 22.1 ML/MIN; Ferritin 73.4 ng/mL (17.9-464); Folate (Folic Acid) 4.8 ng/mL (2.76 - >20); MAGNESIUM 2.1 mg/dL (1.6-2.3); Potassium 5.2 mmol/L (3.5-5.1); Total Protein 6.9 g/dL (6.3-8.2)
[2025-01-07] MEDS: VELTASSA PO STA (09:07)
--- NOTE | 2025-01-07 10:05 | PCM.NOTE ---
Date and Time: 01/07/25 0957 Subjective Assessment: 01/06/25 is a 84 year old male with a history of diabetes, hypertension, hyperlipidemia, and CKD [facility] He presented on 01/05/25 to the ED after nearly passing out secondary to dizziness. 12 days ago, the patient was taken off of metformin because of its negative effects on this patient's renal function and he was instead placed on alogliptin. This was not controlling his blood sugar and before he fell, he states his blood sugar was in the 400 range. He found a single metformin tablet and took that pill and by the time he arrived to the emergency department, his blood sugar was 189 and he states his symptoms that he had before he arrived have resolved and he is feeling much better. He did not suffer any head injury. He has no pain complaints. He denies chest pain and he denies shortness of breath. He denied any leg edema. He denies any recent vomiting or diarrhea, any recent change in oral fluid intake, and any OTC consumption of NSAIDs. In the ED, the patient was noted to have LIZETT with hyperkalemia. A bed in the [facility] was not available. He states that he has had prostate issues with lower urinary tract symptoms for approximately 2 years, but these are unchanged. Today K+ 5.5 and Veltassa ordered. Will recheck this afternoon. He reports no dizziness today. Creat 3.25 and baseline unknown. He states he has no hx of renal disease but looking back at old labs it appears he has CRD. Nephrology consulted. Continue IVF. Echo, CT head, and renal US pending. He denies CP, SOB, abd. pain, N/V/D. 01/07/25 Pt sitting up in bed. He states he is starting to feel better. Kidney function improving. Nephrology came to eval pt last night and labs ordered. UC gram negative and sensitivity pending. K+ 5.2 and Veltassa ordered. Will recheck labs this afternoon. Renal US showed left renal cysts. Remaining renal sonogram negative. Continue oral sodium bicarb for CO2 20- this has improved. Continue IVF. Pt asking for rehab placement but did well with PT yesterday. Case management to discuss options with pt. Pt denies CP, SOB, abd. pain, N/V/D. - Review of Systems Constitutional: Weakness, No Fever, No Chills Eyes: No Symptoms Ears, Nose, & Throat: No Symptoms Respiratory: No Cough, No Short Of Breath Cardiac: No Chest Pain, No Edema, No Syncope Abdominal/Gastrointestinal: No Abdominal Pain, No Nausea, No Vomiting, No Diarrhea Genitourinary Symptoms: No Dysuria Musculoskeletal: No Back Pain, No Neck Pain Skin: Other (pale), No Rash Neurological: No Dizziness, No Focal Weakness, No Sensory Changes Psychological: No Symptoms Endocrine: No Symptoms Hematologic/Lymphatic: No Symptoms Immunological/Allergic: No Symptoms Objective Exam General Appearance: no apparent distress, alert Neurologic Exam: alert, oriented x 3, cooperative, normal mood/affect, nml cerebellar function, sensation nml, motor weakness, No motor deficits Skin Exam: warm, dry, pale Eye Exam: PERRL, EOMI, eyes nml inspection Ears, Nose, Throat Exam: normal ENT inspection, pharynx normal, moist mucous membranes Neck Exam: normal inspection, non-tender, supple, full range of motion Respiratory Exam: normal breath sounds, lungs clear, No respiratory distress Cardiovascular Exam: regular rate/rhythm, normal heart sounds Gastrointestinal/Abdomen Exam: soft, No tenderness, No mass Extremity Exam: normal inspection, normal range of motion Back Exam: normal inspection, normal range of motion, No CVA tenderness, No vertebral tenderness Male Genitalia Exam: deferred Rectal Exam: deferred Objective Data Vital Signs: Vital Signs - 24 hr Temp Pulse Resp BP Pulse Ox 01/07/25 08:00 97.1 F 62 18 148/67 95 01/07/25 04:00 97.8 F 76 16 136/64 95 01/07/25 00:00 97.5 F 66 18 142/65 96 01/06/25 20:00 97.8 F 66 20 137/62 98 01/06/25 16:00 97.5 F 67 18 136/92 95 01/06/25 12:00 97.3 F 60 16 165/74 96 Pain Assessment - Last Documented Pain Intensity 0 Intake and Output: Intake & Output 01/04/25 01/05/25 01/06/25 01/07/25 11:59 11:59 11:59 11:59 Intake Total 120 1705 Balance 120 1705 Weight 93.8 kg Lab Results: Lab Results-Last 24 Hours 03/09/2201/06/25 01/06/25 Range/Units 11:48 11:48 14:04 WBC (4.23-9.07) x10^3/uL RBC (4.63-6.08) x10^6/uL Hgb (13.7-17.5) g/dL Hct (40.1-51.0) % MCV (79.0-92.2) fL MCH (25.7-32.2) pg MCHC (32.3-36.5) g/dL RDW (11.6-14.4) % Plt Count (163-337) x10^3/uL MPV (9.4-12.4) fL Sodium (135-145) mmol/L Potassium 5.4 H (3.5-5.1) mmol/L Chloride (98-107) mmol/L Carbon Dioxide (22-30) mmol/L Anion Gap (5-15) MEQ/L BUN (9-20) mg/dL Creatinine (0.66-1.25) mg/dL Estimated GFR ML/MIN Glucose (74-106) mg/dL POC Glucometer 138 H 138 H (74 to 106) mg/dL Hemoglobin A1c (4.5-6.0) % Calcium (8.4-10.2) mg/dL Magnesium 2.3 (1.6-2.3) mg/dL Iron (49-181) ug/dL TIBC (261-497) ug/dL Iron Saturation (20-39) % Ferritin (17.9-464) ng/mL Total Bilirubin (0.2-1.3) mg/dL AST (17-59) U/L ALT (0-50) U/L Alkaline Phosphatase (38-126) U/L Serum Total Protein (6.3-8.2) g/dL Albumin (3.5-5.0) g/dL Vitamin B12 (239-931) pg/mL Folic Acid (2.76 - >20) ng/mL 01/06/25 01/06/25 01/07/25 Range/Units 16:35 22:05 05:52 WBC (4.23-9.07) x10^3/uL RBC (4.63-6.08) x10^6/uL Hgb (13.7-17.5) g/dL Hct (40.1-51.0) % MCV (79.0-92.2) fL MCH (25.7-32.2) pg MCHC (32.3-36.5) g/dL RDW (11.6-14.4) % Plt Count (163-337) x10^3/uL MPV (9.4-12.4) fL Sodium (135-145) mmol/L Potassium (3.5-5.1) mmol/L Chloride (98-107) mmol/L Carbon Dioxide (22-30) mmol/L Anion Gap (5-15) MEQ/L BUN (9-20) mg/dL Creatinine (0.66-1.25) mg/dL Estimated GFR ML/MIN Glucose (74-106) mg/dL POC Glucometer 176 H 165 H (74 to 106) mg/dL Hemoglobin A1c 8.74 H (4.5-6.0) % Calcium (8.4-10.2) mg/dL Magnesium (1.6-2.3) mg/dL Iron (49-181) ug/dL TIBC (261-497) ug/dL Iron Saturation (20-39) % Ferritin (17.9-464) ng/mL Total Bilirubin (0.2-1.3) mg/dL AST (17-59) U/L ALT (0-50) U/L Alkaline Phosphatase (38-126) U/L Serum Total Protein (6.3-8.2) g/dL Albumin (3.5-5.0) g/dL Vitamin B12 (239-931) pg/mL Folic Acid (2.76 - >20) ng/mL 01/07/25 01/07/25 01/07/25 Range/Units 05:52 05:52 05:52 WBC 4.5 (4.23-9.07) x10^3/uL RBC 3.20 L (4.63-6.08) x10^6/uL Hgb 8.4 L (13.7-17.5) g/dL Hct 26.7 L (40.1-51.0) % MCV 83.4 (79.0-92.2) fL MCH 26.3 (25.7-32.2) pg MCHC 31.5 L (32.3-36.5) g/dL RDW 15.3 H (11.6-14.4) % Plt Count 176 (163-337) x10^3/uL MPV 9.3 L (9.4-12.4) fL Sodium 138 (135-145) mmol/L Potassium 5.2 H (3.5-5.1) mmol/L Chloride 108 H (98-107) mmol/L Carbon Dioxide 20 L (22-30) mmol/L Anion Gap 15.8 H (5-15) MEQ/L BUN 36 H (9-20) mg/dL Creatinine 2.72 H (0.66-1.25) mg/dL Estimated GFR 22.1 ML/MIN Glucose 160 H (74-106) mg/dL POC Glucometer (74 to 106) mg/dL Hemoglobin A1c (4.5-6.0) % Calcium 8.3 L (8.4-10.2) mg/dL Magnesium 2.1 (1.6-2.3) mg/dL Iron 60 (49-181) ug/dL TIBC 233 L (261-497) ug/dL Iron Saturation 26 (20-39) % Ferritin 73.4 (17.9-464) ng/mL Total Bilirubin 0.40 (0.2-1.3) mg/dL AST 19 (17-59) U/L ALT 17 (0-50) U/L Alkaline Phosphatase 110 (38-126) U/L Serum Total Protein 6.9 (6.3-8.2) g/dL Albumin 3.9 (3.5-5.0) g/dL Vitamin B12 540 (239-931) pg/mL Folic Acid 4.80 (2.76 - >20) ng/mL 01/07/25 Range/Units 07:10 WBC (4.23-9.07) x10^3/uL RBC (4.63-6.08) x10^6/uL Hgb (13.7-17.5) g/dL Hct (40.1-51.0) % MCV (79.0-92.2) fL MCH (25.7-32.2) pg MCHC (32.3-36.5) g/dL RDW (11.6-14.4) % Plt Count (163-337) x10^3/uL MPV (9.4-12.4) fL Sodium (135-145) mmol/L Potassium (3.5-5.1) mmol/L Chloride (98-107) mmol/L Carbon Dioxide (22-30) mmol/L Anion Gap (5-15) MEQ/L BUN (9-20) mg/dL Creatinine (0.66-1.25) mg/dL Estimated GFR ML/MIN Glucose (74-106) mg/dL POC Glucometer 158 H (74 to 106) mg/dL Hemoglobin A1c (4.5-6.0) % Calcium (8.4-10.2) mg/dL Magnesium (1.6-2.3) mg/dL Iron (49-181) ug/dL TIBC (261-497) ug/dL Iron Saturation (20-39) % Ferritin (17.9-464) ng/mL Total Bilirubin (0.2-1.3) mg/dL AST (17-59) U/L ALT (0-50) U/L Alkaline Phosphatase (38-126) U/L Serum Total Protein (6.3-8.2) g/dL Albumin (3.5-5.0) g/dL Vitamin B12 (239-931) pg/mL Folic Acid (2.76 - >20) ng/mL Radiology Exams: Radiology Procedures Category Date Time Status ECHO W/2D AND DOPPLER [US] Routine Exams 01/06/25 05:12 Taken HEAD WITHOUT CONTRAST [CT] Stat Exams 01/05/25 17:21 Completed KIDNEY [US] Routine Exams 01/06/25 03:57 Completed Assessment/Plan (1) Acute renal failure superimposed on chronic kidney disease Current Visit: Yes Status: Acute Code(s): N17.9 - ACUTE KIDNEY FAILURE, UNSPECIFIED; N18.9 - CHRONIC KIDNEY DISEASE, UNSPECIFIED (2) DM2 (diabetes mellitus, type 2) Current Visit: Yes Status: Chronic Qualifiers: Diabetes mellitus intermodal customer service insulin use: without assisted use (3) Dehydration Current Visit: Yes Status: Acute Code(s): E86.0 - DEHYDRATION (4) Metabolic acidosis Current Visit: Yes Status: Acute Code(s): E87.20 - ACIDOSIS, UNSPECIFIED (5) Hyperkalemia Current Visit: Yes Status: Acute Code(s): E87.5 - HYPERKALEMIA (6) Dizziness Current Visit: Yes Status: Resolved Assessment & Plan: (1) Acute renal failure superimposed on chronic kidney disease Current Visit: Yes Status: Acute Assessment & Plan: - CReat 3.25- unknown baseline - Nephrology consult- labs ordered - IVF - Renal US: Left renal cyst 01/07 - CBC, CMP, UA reviewed - + UTI- antibiotic started - Creat 2.72- improved Code(s): N17.9 - ACUTE KIDNEY FAILURE, UNSPECIFIED; N18.9 - CHRONIC KIDNEY DISEASE, UNSPECIFIED (2) DM2 (diabetes mellitus, type 2) Current Visit: Yes Status: Chronic Qualifiers: Diabetes mellitus assisted insulin use: without assisted use Assessment & Plan: - A1c- 8.74- uncontrolled - Humalog S/S, Accuchecks ac/hs - Nutrition consult - Education provided on how uncontrolled type II DM can cause renal failure (3) Dehydration Current Visit: Yes Status: Acute Assessment & Plan: - Anion gap 18 - IVF 01/07 - Anion Gap 15.8- improved Code(s): E86.0 - DEHYDRATION (4) Metabolic acidosis Current Visit: Yes Status: Acute Assessment & Plan: - CO2 19 - Started sodium bicarb PO BID 01/07 - Co2 20- improved Code(s): E87.20 - ACIDOSIS, UNSPECIFIED (5) Hyperkalemia Current Visit: Yes Status: Acute Assessment & Plan: - K+ 5.5 - [place] PO x1 - recheck at 1400- - V[place] PO x1- again gave - Tele - 2:2 LIZETT 01/07 - K+ 5.2 - V[place] PO x1 Code(s): E87.5 - HYPERKALEMIA (6) Dizziness Current Visit: Yes Status: Resolved Assessment & Plan: - resolved since admission - Meclizine - PT eval - CT head negative for acute concern Code(s): R42 - DIZZINESS AND GIDDINESS Code(s): R42 - DIZZINESS AND GIDDINESS (7) UTI (urinary tract infection) Current Visit: Yes Status: Acute Assessment & Plan: - UC gram negative sensitivity pending - ceftriaxone IV VTE: Xarelto PPI: Protonix Next of KIN: Verónica Haq, D/C plan: pending nephro recs Code status: Full Code(s): N39.0 - URINARY TRACT INFECTION, SITE NOT SPECIFIED
[2025-01-07] MEDS: ROCEPHIN 1 GM / 100 ML NaCl 1 GM/100 ML IVPB IV SCH (11:07)
--- NOTE | 2025-01-07 12:30 | CONS ---
REASON FOR VISIT: Increased BUN and creatinine. HISTORY OF PRESENT ILLNESS: The patient is an 84-year-old gentleman who has a history of multiple medical problems with diabetes, hypertension for more than 20 years. He generally follows at [facility]. He has had not much of followup. He was apparently seen in the [facility] for a physical after a few years he had lapsed on but shown to have increased BUN and creatinine. He was taken off metformin. He apparently was noticing his sugar was running high. He started feeling poorly. He started feeling dizzy and lightheaded and he apparently felt dizzy and fell, so he was admitted for further management. He was noticed to have increased BUN and creatinine, so nephrology service was consulted. REVIEW OF SYSTEMS: Patient denies any vomiting, diarrhea or fever. Denies any chest pain. Denies any edema or urinary difficulties. PAST MEDICAL HISTORY: 1) History of diabetes. 2) Hypertension. 3) Hyperlipidemia. 4) History of BPH. MEDICATIONS: Home medicines and medicines in the hospital were reviewed per the medication reconciliation sheet. His home meds were included metformin which was recently stopped, which also included lisinopril, amlodipine, metoprolol, rivaroxaban, and rosuvastatin, along with other medications, all of which were reviewed. PAST SURGICAL HISTORY: Patient denies any major recent surgery. SOCIAL HISTORY: He has a history of smoking but does not smoke anymore. ALLERGIES: NKDA. FAMILY HISTORY: Denies any history of kidney disease in the family. PHYSICAL EXAMINATION: GENERAL: Patient is awake, alert, oriented, in no clinical distress. VITAL SIGNS: Temperature afebrile, respiratory rate of 18, 96% saturation, heart rate of 51, blood pressure 190/51. HEENT: Head is atraumatic. Eyes anicteric. ENT: Mucosa moist. NECK: No JVD. Trachea midline. CHEST: Clear to auscultation bilaterally. No rales or respiratory distress. CARDIOVASCULAR: Appears regular. No peripheral edema. ABDOMEN: Soft, nontender. Positive bowel sounds. No hepatosplenomegaly. EXTREMITIES: No peripheral edema or cyanosis. NEUROLOGIC: Awake, alert, oriented x3. Following commands and answering all questions appropriately. PSYCHIATRIC: Appropriate mood and affect. SKIN: Warm and dry. LABORATORY: On 01/05/2025, hemoglobin 9.4, WBC 4.6. BUN 49, creatinine 3.3, potassium 5.3, bicarb 20, sodium 140. Urinalysis: Protein of 30. Apparently, as per verbal report, his head CT was okay. ASSESSMENT AND PLAN: An 84-year-old gentleman. Medical problems are: 1) Acute kidney injury with underlying chronic kidney disease. Possibly he may have chronic kidney disease stage 4. His previous liver and renal functions are unknown. He may have diabetes, hypertension, and nephropathy. I will order workup for the cause of renal dysfunction. I recommend utilizing the following medications and avoiding nephrotoxins. I agree with holding off on the metformin at this stage. His lisinopril has also been held. He is getting IV fluids. I will monitor fluids and renal function status closely. He will require close outpatient followup. I will repeat labs tomorrow and monitor him closely. Recommend avoiding any NSAIDs. 2) Hyperkalemia likely due to poor renal function and lisinopril. The lisinopril is on hold. He has received Kayexalate. I will repeat labs again tomorrow and monitor potassium. 3) Acidosis likely due to poor renal function. I agree with holding and avoiding metformin. I will repeat bicarb and see, he might require sodium bicarbonate supplementation. 4) Anemia likely due to chronic kidney disease. I will check iron, B12, folic acid, monitor anemia and hemoglobin. 5) Hypertension. Blood pressure under reasonable control at this stage. It may come up. His lisinopril is on hold because of LIZETT and hyperkalemia. He will need alternative blood pressure medicines as needed. 6) Diabetes mellitus type 2. He may be a good candidate for Farxiga or other alternative agents. I recommend primary care or hospitalist management for that. 7) Hyperlipidemia. He will continue rosuvastatin. It is unclear why he is on blood thinners. 8) He may have benign prostatic hypertrophy. He is on terazosin. Monitor and follow him closely. Thank you for the consultation of this patient. Please do not hesitate to contact me for any questions.
[2025-01-07] MEDS: TYLENOL 325 MG PO PRN (22:11)
[2025-01-07] MEDS: HUMALOG SQ PRN (22:35)
[2025-01-08] MEDS: Restoril 15 MG PO PRN (00:03)
[2025-01-08 05:41] LABS: Hematocrit 25.9 % (40.1-51.0); Hemoglobin 8.3 g/dL (13.7-17.5); Mean Cell Volume 83.3 fL (79.0-92.2); Mean Corpuscular Hemoglobin 26.7 pg (25.7-32.2); Mean Platelet Volume 9.4 fL (9.4-12.4); Platelet Count 149 x10^3/uL (163-337); Red Blood Count 3.11 x10^6/uL (4.63-6.08); Red Cell Distribution Width 15.3 % (11.6-14.4); White Blood Count 3.7 x10^3/uL (4.23-9.07)
[2025-01-08 06:04] LABS: ALBUMIN 3.4 g/dL (3.5-5.0); ANION GAP 15.9 MEQ/L (5-15); BILIRUBIN,TOTAL 0.3 mg/dL (0.2-1.3); Calcium 7.8 mg/dL (8.4-10.2); Creatinine 1 2.63 mg/dL (0.66-1.25); Potassium 4.8 mmol/L (3.5-5.1); Total Protein 6.4 g/dL (6.3-8.2)
[2025-01-08 12:08] VITALS: BP 123/62; PULSE 58; TEMP 97.1; O2SAT 97
[2025-01-08 12:10] VITALS: RESP 16
[2025-01-08] MEDS ORDERED: Flomax 0.4 MG PO SCH (12:25)
--- NOTE | 2025-01-08 12:26 | PCM.DS ---
Discharge Summary Date of Admission: 01/06/25 00:39 Date of Discharge: 01/08/25 Admitting Physician: KEN GANT MD Consults: Consults on Case 01/06/25 03:30 Case Management SDOH DC Needs Assessment ROUTINE 01/06/25 11:48 Consult Nephrology ROUTINE 01/07/25 10:08 Nutritional Consult ROUTINE Primary Care Provider: [facility] Allergies Allergies No Known Drug Allergies Allergy (Verified 10/15/23 16:22) Hospital Summary - Hospital Course Hospital Course: 01/06/25 is a 84 year old male with a history of diabetes, hypertension, hyperlipidemia, and CKD who usually receives care in the [facility]. He presented on 01/05/25 to the ED after nearly passing out secondary to dizziness. 12 days ago, the patient was taken off of metformin because of its negative effects on t his patient's renal function and he was instead placed on alogliptin. This was not controlling his blood sugar and before he fell, he states his blood sugar was in the 400 range. He found a single metformin tablet and took that pill and by the time he arrived to the emergency department, his blood sugar was 189 and he states his symptoms that he had before he arrived have resolved and he is feeling much better. He did not suffer any head injury. He has no pain complaints. He denies chest pain and he denies shortness of breath. He denied any leg edema. He denies any recent vomiting or diarrhea, any recent change in oral fluid intake, and any OTC consumption of NSAIDs. In the ED, the patient was noted to have LIZETT with hyperkalemia. A bed in the [facility] was not available. He states that he has had prostate issues with lower urinary tract symptoms for approximately 2 years, but these are unchanged. Today K+ 5.5 and Veltassa ordered. Will recheck this afternoon. He reports no dizziness today. Creat 3.25 and baseline unknown. He states he has no hx of renal disease but looking back at old labs it appears he has CRD. Nephrology consulted. Continue IVF. Echo, CT head, and renal US pending. He denies CP, SOB, abd. pain, N/V/D. 01/07/25 Pt sitting up in bed. He states he is starting to feel better. Kidney function improving. Nephrology came to eval pt last night and labs ordered. UC gram negative and sensitivity pending. K+ 5.2 and Veltassa ordered. Will recheck labs this afternoon. Renal US showed left renal cysts. Remaining renal sonogram negative. Continue oral sodium bicarb for CO2 20- this has improved. Continue IVF. Pt asking for rehab placement but did well with PT yesterday. Case management to discuss options with pt. Pt denies CP, SOB, abd. pain, N/V/D. 01/08/25 Pt resting in the chair he has been up and walking around the unit. Kidney function has improved. Will continue lasix OP and have pt f/u with nephrology with [facility]. He will need repeat labs by Sunday. Vitamin D and calcium low will continue to replace and this will also need OP f/u. Will continue antibiotic for UTI. He is medically stable and ready to d/c today. He denies any further concerns at this time. - Vitals & Intake/Output Vital Signs: Vital Signs Temperature 97.1 F 01/08/25 12:00 Pulse Rate 58 L 01/08/25 12:00 Respiratory Rate 16 01/08/25 12:00 Blood Pressure 123/62 01/08/25 12:00 O2 Sat by Pulse Oximetry 97 01/08/25 12:00 Intake & Output: Intake & Output 01/06/25 01/07/25 01/08/25 01/09/25 11:59 11:59 11:59 11:59 Intake Total 120 2185 2616 Balance 120 2185 2616 Weight 93.8 kg - Lab Result Diagrams: 01/08/25 05:34 01/08/25 05:34 Lab Results-Last 24 Hrs: Lab Results-Last 24 Hours 01/07/25 01/07/25 01/08/25 Range/Units 16:17 22:18 05:34 WBC 3.7 L (4.23-9.07) x10^3/uL RBC 3.11 L (4.63-6.08) x10^6/uL Hgb 8.3 L (13.7-17.5) g/dL Hct 25.9 L (40.1-51.0) % MCV 83.3 (79.0-92.2) fL MCH 26.7 (25.7-32.2) pg MCHC 32.0 L (32.3-36.5) g/dL RDW 15.3 H (11.6-14.4) % Plt Count 149 L (163-337) x10^3/uL MPV 9.4 (9.4-12.4) fL Sodium (135-145) mmol/L Potassium (3.5-5.1) mmol/L Chloride (98-107) mmol/L Carbon Dioxide (22-30) mmol/L Anion Gap (5-15) MEQ/L BUN (9-20) mg/dL Creatinine (0.66-1.25) mg/dL Estimated GFR ML/MIN Glucose (74-106) mg/dL POC Glucometer 192 H 271 H (74 to 106) mg/dL Calcium (8.4-10.2) mg/dL Total Bilirubin (0.2-1.3) mg/dL AST (17-59) U/L ALT (0-50) U/L Alkaline Phosphatase (38-126) U/L Serum Total Protein (6.3-8.2) g/dL Albumin (3.5-5.0) g/dL 25-OH Vitamin D Total (30-100) ng/mL 01/08/25 01/08/25 01/08/25 Range/Units 05:34 05:34 08:10 WBC (4.23-9.07) x10^3/uL RBC (4.63-6.08) x10^6/uL Hgb (13.7-17.5) g/dL Hct (40.1-51.0) % MCV (79.0-92.2) fL MCH (25.7-32.2) pg MCHC (32.3-36.5) g/dL RDW (11.6-14.4) % Plt Count (163-337) x10^3/uL MPV (9.4-12.4) fL Sodium 139 (135-145) mmol/L Potassium 4.8 (3.5-5.1) mmol/L Chloride 108 H (98-107) mmol/L Carbon Dioxide 20 L (22-30) mmol/L Anion Gap 15.9 H (5-15) MEQ/L BUN 30 H (9-20) mg/dL Creatinine 2.63 H (0.66-1.25) mg/dL Estimated GFR 23.0 ML/MIN Glucose 147 H (74-106) mg/dL POC Glucometer 156 H (74 to 106) mg/dL Calcium 7.8 L (8.4-10.2) mg/dL Total Bilirubin 0.30 (0.2-1.3) mg/dL AST 17 (17-59) U/L ALT 15 (0-50) U/L Alkaline Phosphatase 106 (38-126) U/L Serum Total Protein 6.4 (6.3-8.2) g/dL Albumin 3.4 L (3.5-5.0) g/dL 25-OH Vitamin D Total 14.7 L (30-100) ng/mL 01/08/25 Range/Units 11:35 WBC (4.23-9.07) x10^3/uL RBC (4.63-6.08) x10^6/uL Hgb (13.7-17.5) g/dL Hct (40.1-51.0) % MCV (79.0-92.2) fL MCH (25.7-32.2) pg MCHC (32.3-36.5) g/dL RDW (11.6-14.4) % Plt Count (163-337) x10^3/uL MPV (9.4-12.4) fL Sodium (135-145) mmol/L Potassium (3.5-5.1) mmol/L Chloride (98-107) mmol/L Carbon Dioxide (22-30) mmol/L Anion Gap (5-15) MEQ/L BUN (9-20) mg/dL Creatinine (0.66-1.25) mg/dL Estimated GFR ML/MIN Glucose (74-106) mg/dL POC Glucometer 257 H (74 to 106) mg/dL Calcium (8.4-10.2) mg/dL Total Bilirubin (0.2-1.3) mg/dL AST (17-59) U/L ALT (0-50) U/L Alkaline Phosphatase (38-126) U/L Serum Total Protein (6.3-8.2) g/dL Albumin (3.5-5.0) g/dL 25-OH Vitamin D Total (30-100) ng/mL Micro Results-Entire Visit: Microbiology 01/05/25 19:26 Urine Culture - Final Catherized Proteus Mirabilis Accuchecks Date 01/08/25 Date 01/08/25 Date 01/07/25 Date 01/07/25 Time 12:07 Time 08:22 Time 22:22 - Procedures and Test Procedures and Tests throughout Hospitalization: Therapy Orders & Screens 01/06/25 00:51 EKG REPEAT IN AM Comment: 01/06/25 03:28 PT Eval & Treat ( Order) ONCE Reason for Eval:: dizziness Diagnosis: Hyperkalemia Discharge Exam General Appearance: no apparent distress, alert, obese Neurologic Exam: alert, oriented x 3, cooperative, normal mood/affect, nml cerebellar function, sensation nml, No motor deficits Eye Exam: PERRL, EOMI, eyes nml inspection Ears, Nose, Throat Exam: normal ENT inspection, pharynx normal, moist mucous membranes Neck Exam: normal inspection, non-tender, supple, full range of motion Respiratory Exam: normal breath sounds, lungs clear, No respiratory distress Cardiovascular Exam: regular rate/rhythm, normal heart sounds Gastrointestinal/Abdomen Exam: soft, No tenderness, No mass Male Genitalia Exam: deferred Rectal Exam: deferred Back Exam: normal inspection, normal range of motion, No CVA tenderness, No vertebral tenderness Extremity Exam: normal inspection, normal range of motion Skin Exam: warm, dry, pale Final Diagnosis/Problem List - Final Discharge Diagnosis/Problem (1) Acute renal failure superimposed on chronic kidney disease Current Visit: Yes Status: Acute Code(s): N17.9 - ACUTE KIDNEY FAILURE, UNSPECIFIED; N18.9 - CHRONIC KIDNEY DISEASE, UNSPECIFIED (2) DM2 (diabetes mellitus, type 2) Current Visit: Yes Status: Chronic (3) Dehydration Current Visit: Yes Status: Acute Code(s): E86.0 - DEHYDRATION (4) Metabolic acidosis Current Visit: Yes Status: Acute Code(s): E87.20 - ACIDOSIS, UNSPECIFIED (5) Hyperkalemia Current Visit: Yes Status: Acute Code(s): E87.5 - HYPERKALEMIA (6) Dizziness Current Visit: Yes Status: Resolved Code(s): R42 - DIZZINESS AND GIDDINESS (7) UTI (urinary tract infection) Current Visit: Yes Status: Acute Assessment & Plan: (1) Acute renal failure superimposed on chronic kidney disease Current Visit: Yes Status: Acute Assessment & Plan: - CReat 3.25- unknown baseline - Nephrology consult- labs ordered - IVF - Renal US: Left renal cyst 01/07 - CBC, CMP, UA reviewed - + UTI- antibiotic started - Creat 2.72- improved 01/08 - creat 2.63- improved - f/u with nephrology OP- will need an appointment with a [facility] provider Code(s): N17.9 - ACUTE KIDNEY FAILURE, UNSPECIFIED; N18.9 - CHRONIC KIDNEY DISEASE, UNSPECIFIED (2) DM2 (diabetes mellitus, type 2) Current Visit: Yes Status: Chronic Qualifiers: Diabetes mellitus director long term care insulin use: without mcc use Assessment & Plan: - A1c- 8.74- uncontrolled - Humalog S/S, Accuchecks ac/hs - Nutrition consult - Education provided on how uncontrolled type II DM can cause renal failure (3) Dehydration Current Visit: Yes Status: Acute Assessment & Plan: - Anion gap 18 - IVF 01/07 - Anion Gap 15.8- improved 01/08 - anion gap 15.9 Code(s): E86.0 - DEHYDRATION (4) Metabolic acidosis Current Visit: Yes Status: Acute Assessment & Plan: - CO2 19 - Started sodium bicarb PO BID 01/07 - Co2 20- improved 01/08 - CO2 20 - F/U for repeat labs OP with PCP Code(s): E87.20 - ACIDOSIS, UNSPECIFIED (5) Hyperkalemia Current Visit: Yes Status: Acute Assessment & Plan: - K+ 5.5 - Veltassa PO x1 - recheck at 1400- - Veltassa PO x1- again gave - Tele - 2:2 LIZETT 01/07 - K+ 5.2 - Veltassa PO x1 01/08 - resolved Code(s): E87.5 - HYPERKALEMIA (6) Dizziness Current Visit: Yes Status: Resolved Assessment & Plan: - resolved since admission - Meclizine - PT eval - CT head negative for acute concern Code(s): R42 - DIZZINESS AND GIDDINESS (7) UTI (urinary tract infection) Current Visit: Yes Status: Acute Assessment & Plan: - UC gram negative sensitivity pending - ceftriaxone IV 01/08 - UC + Proteus Mirabilis - Will d/c with antibiotic Code(s): N39.0 - URINARY TRACT INFECTION, SITE NOT SPECIFIED (8) BPH (benign prostatic hyperplasia) Current Visit: Yes Status: Chronic Assessment & Plan: - Continue flomax- pt just told me today he takes this and it was not on his home med list. Code(s): N40.0 - BENIGN PROSTATIC HYPERPLASIA WITHOUT LOWER URINRY TRACT SYMP (9) Vitamin D deficiency Current Visit: Yes Status: Acute Assessment & Plan: - Vit D 14.7 - start daily replacement - Will need OP f/u labs Code(s): E55.9 - VITAMIN D DEFICIENCY, UNSPECIFIED (10) Hypocalcemia Current Visit: Yes Status: Acute Assessment & Plan: - Ca+ 7.9 - Tums BID - likely 2:2 CRD - F/U for repeat labs OP Code(s): E83.51 - HYPOCALCEMIA - Discharge Discharge Date: 01/08/25 Disposition: Home, Self-Care Condition: Fair Prescriptions: New Tamsulosin HCl 0.4 mg [Flomax 0.4 MG] 0.4 mg PO DAILY cap Continue Lisinopril 20 mg [Zestril 20 MG] 20 mg PO DAILY Terazosin HCl 5 mg PO HS Meclizine HCl 12.5 mg PO Q6HPRN PRN PRN Reason: Dizziness Alogliptin Benzoate [Alogliptin] 12.5 mg PO DAILY Rivaroxaban 10 mg Tablet [Xarelto 10 mg Tablet] 15 mg PO DAILY Amlodipine Besylate 5 mg [Norvasc 5 mg] 5 mg PO DAILY Rosuvastatin Calcium 10 mg PO DAILY Metoprolol Succinate 100 mg [Toprol Xl 100 MG] 100 mg PO DAILY Discontinued Metformin HCl [Glucophage] 500 mg PO BID Follow up with: TOM FOWLER MD [CONSULTING PHYSICIAN] - (AT [facility],'S [Primary Care Provider] -
[2025-01-08 15:08] LABS: Free Dappa Lt Chains,S 88.7 mg/L (3.3-19.4); Free Lambda Lt Chains,S 50.7 mg/L (5.7-26.3)
[2025-01-08 15:43] LABS: Anti-DNA (DS) Ab Qn 1 IU/mL (0-9); Kappa/Lambda Ratio, S 1.75 (0.26-1.65)
[2025-01-08 19:08] LABS: Alpha-1-Globulin 0.2 g/dL (0.0-0.4); Alpha-2-Globulin 0.8 g/dL (0.4-1.0); Gamma Globulin 1.1 g/dL (0.4-1.8); Protein, Total 6.1 g/dL (6.0-8.5)
[2025-01-09 17:08] LABS: Albumin, U 33.6 % (.); Alpha-1-Globulin, U 5.4 % (.); Alpha-2-Globulin,U 15.2 % (.); Beta Globulin, U 16.9 % (.); Gamma Globulin, U 28.9 % (.); M-Spike, % Not Observed % (Not Observed); Protein, Total, Urine 34.5 mg/dL (Not Estab.)
[2025-01-09 17:08] LABS: Immunoglobulin G, Qn 1284 mg/dL (603-1613)
[2025-01-09 17:46] LABS: Immunoglobulin M, Qn 103 mg/dL (15-143)
[2025-01-09 17:47] LABS: Immunofixation, Urine Comment: (.)
[2025-01-09 20:08] LABS: Anti-MPO Antibodies <0.2 units (0.0-0.9); Anti-PR3 Antibodies <0.2 units (0.0-0.9); Cytoplasmic (C-ANCA) <1:20 titer (Neg:<1:20)
[2025-01-10 01:50] LABS: Perinuclear (P-ANCA) <1:20 titer (Neg:<1:20)
[2025-01-12 15:11] LABS: Anti-Centromere B Antibodies <0.2 AI (0.0-0.9); Anti-Jo-1 0.2 AI (0.0-0.9); Antichromatin Antibodies <0.2 AI (0.0-0.9); Antiribosomal P Antibodies <0.2 AI (0.0-0.9); Antiscleroderma-70 Antibodies <0.2 AI (0.0-0.9); RNP Antibodies 0.2 AI (0.0-0.9); Sjogren's Anti-SS-A <0.2 AI (0.0-0.9); Sjogren's Anti-SS-B <0.2 AI (0.0-0.9); Smith/RNP Antibodies <0.2 AI (0.0-0.9)
[2025-01-12 15:38] LABS: Antinuclear Antiboides, IFA Positive (.)
== END 2025-01-08 16:07 | disposition home or self-care (01) ==
LOC: ED 16:55 → MED SURG 01-06 00:39
PROVIDERS: ADMIT Internal Medicine; ATTEND Internal Medicine
DX: E11.22 Type 2 diabetes mellitus with diabetic chronic kidney disease (principal); I12.9 Hypertensive chronic kidney disease with stage 1 through stage 4 chronic kidney disease, or unspecified chronic kidney disease; N17.9 Acute kidney failure, unspecified; N18.9 Chronic kidney disease, unspecified; E86.0 Dehydration; E87.20 Acidosis, unspecified; E87.5 Hyperkalemia; R42 Dizziness and giddiness; N39.0 Urinary tract infection, site not specified; N40.0 Benign prostatic hyperplasia without lower urinary tract symptoms; E55.9 Vitamin D deficiency, unspecified; E78.5 Hyperlipidemia, unspecified; Z79.899 Other long term (current) drug therapy
CPT/HCPCS: 36415; 70450; 76770; 80048; 80053; 81001; 82077; 82306; 82607; 82728; 82746; 82784; 82947; 83036; 83516; 83521; 83540; 83550; 83735; 83880; 84132; 84156; 84165; 84166; 85025; 85027; 86037; 86038; 86225; 86335; 87077; 87086; 87186; 93005; 93041; 93268; 93306; 94640; 94760; 96374; 96375; 96376; 99285; 99291; J0612; J0696; J1815; J1817; J1940; J7609; Q3014; 97110-GP; A9270-GY; G0378